=== PATIENT | female | born 1950 | race Caucasian/White ===

== ENCOUNTER 2016-07-01 11:32 | Day surgery (SDC) | payer MEDICARE, OTHER ==
[2016-07-01] MEDS ORDERED: LACTATED RINGERS 1,000 ML IV ONE (11:54)
[2016-07-01] MEDS ORDERED: fentaNYL 250 MCG/5 ML VIAL IVP ONE (12:46)
[2016-07-01] MEDS ORDERED: MIDAZOLAM 2 MG/2 ML VIAL IVP ONE (12:46)
== END 2016-07-01 11:33 | disposition home or self-care (01) ==
PROC: 0DB68ZX Excision of Stomach, Via Natural or Artificial Opening Endoscopic, Diagnostic (ICD-10-PCS; principal; 2016-07-01 12:30)
DX: K21.9 Gastro-esophageal reflux disease without esophagitis (principal); K22.2 Esophageal obstruction; K31.7 Polyp of stomach and duodenum
CPT/HCPCS: 43239; J3010; J7120

== ENCOUNTER 2016-09-15 12:13 | Outpatient (CLI) | payer MEDICARE, OTHER | END 2016-09-15 12:14 | disposition home or self-care (01) | DX: N63 Unspecified lump in breast (principal) ==

== ENCOUNTER 2017-04-19 09:00 | Outpatient (CLI) | payer MEDICARE, OTHER | END 2017-04-19 09:01 | disposition home or self-care (01) | LOC: LAB.R 09:00 | PROVIDERS: ATTEND Physician Assistant Medical | DX: R10.9 Unspecified abdominal pain (principal) | CPT/HCPCS: 87086 ==

== ENCOUNTER 2017-04-20 08:04 | Outpatient (CLI) | payer MEDICARE, OTHER ==
[2017-04-20 08:39] LABS: CALCIUM 9.3 mg/dL (8.5-10.3); CREATININE 0.8 mg/dL (0.4-1.0); POTASSIUM 3.9 mmol/L (3.5-5.0)
[2017-04-20] MEDS ORDERED: IOPAMIDOL-300 100 ML VIAL ONE (09:05)
[2017-04-20] MEDS ORDERED: IOPAMIDOL-300 100 ML VIAL IVP ONE (09:37)
--- NOTE | 2017-04-20 11:49 | CT Report ---
CT IVP: 04/20/2017 CLINICAL INDICATION: Microscopic hematuria. TECHNIQUE: Axial CT images of the abdomen and pelvis were obtained prior to and following 100 mL Iso nohemi-300 intravenously, using split bolus technique. No previous CT is available for comparison. In accordance with CT protocol optimization, one or more of the following dose reduction techniques w ere utilized for this exam: automated exposure control, adjustment of mA and/or KV based on patient size, or use of iterative reconstructive technique. FINDINGS: Limited evaluation of the lung bases is unremarkable. Abdomen: On the unenhanced images, there is no evidence of nephrolithiasis or hydronephrosis. The k idneys demonstrate symmetric uptake and excretion of contrast. No renal parenchymal lesion or collec ting system lesion is identified. The liver, spleen, pancreas, and adrenal glands are unremarkable. The gallbladder is not dilated. No bowel dilatation, free gas, or free fluid is present. No abdomi nal adenopathy is seen. Pelvis: The distal ureters and urinary bladder appear unremarkable. No pelvic adenopathy or free fl uid is present. The pelvic organs appear unremarkable. Osseous structures demonstrate degenerative changes and changes of previous left hip replacement. IMPRESSION: NO UPPER TRACT ETIOLOGY FOR PATIENT'S HEMATURIA IS IDENTIFIED. CONSIDER CORRELATION WIT H CYSTOSCOPY. JOB #: [id number] EXT JOB #:[id number]
== END 2017-04-20 08:05 | disposition home or self-care (01) ==
LOC: DI 08:04
PROVIDERS: ATTEND Family Medicine
DX: R31.29 Other microscopic hematuria (principal)
CPT/HCPCS: 36415; 74178; 80048; Q9967

== ENCOUNTER 2017-04-26 08:00 | Outpatient (CLI) | payer MEDICARE, OTHER ==
[2017-04-26 13:06] LABS: BILIRUBIN,URINE NEGATIVE (NEGATIVE)
[2017-04-26 13:19] LABS: UR CULTURE IF IND NOT INDICATED; WBC,URINE 0-3 /HPF (0-5)
== END 2017-04-26 08:01 ==
LOC: LAB.WCP 08:00
PROVIDERS: ATTEND Family Medicine
DX: R31.9 Hematuria, unspecified (principal)
CPT/HCPCS: 81001; 87086

== ENCOUNTER 2017-07-05 10:32 | Outpatient (CLI) | payer MEDICARE, OTHER ==
--- NOTE | 2017-07-06 10:12 | DEXA Report ---
DEXA SCAN: 07/05/2017 CLINICAL INDICATION: Osteoporosis. TECHNIQUE: Dual energy x-ray absorptiometry (DXA) was performed on a [employer] system. Regions measured are the AP spine, femoral neck, and, if needed, forearm. COMPARISON: 02/28/2016. In accordance with the International Society for Clinical Densitometry (ISCD) guidelines, data from previous exams may be reanalyzed using current recommendations and techniques. This is done to allow a more accurate basis for comparison with the current study. FINDINGS: The data for the lumbar spine is as follows: REGION BMD (g/cm/cm) T-SCORE Z-SCORE L1 0.861 -2.2 -0.8 L2 0.970 -1.9 -0.5 L3 0.959 -2.0 -0.6 L4 0.874 -2.7 -1.3 TOTAL 0.916 -2.2 -0.8 NOTE: All evaluable vertebrae are used for classification. The data for the hip is as follows: REGION BMD (g/cm/cm) T-SCORE Z-SCORE Neck 0.758 -2.0 -0.6 TOTAL 0.756 -2.0 -0.8 NOTE: The femoral neck or total proximal femur, whichever is lowest, is used for classification. DXA RESULTS SUMMARY: Spine SCAN DATE AGE BMD T-SCORE BMD CHANGE VS BASELINE BMD CHANGE VS PREVIOUS 07/05/2017 67.2 0.916 --- -0.048* -5.0* 02/28/2016 65.9 0.964 --- ---- --- *Denotes significant change at the 95% confidence level. Denotes dissimilar scan types or analysis methods. DXA RESULTS SUMMARY: Total Hip SCAN DATE AGE BMD T-SCORE BMD CHANGE VS BASELINE BMD CHANGE VS PREVIOUS 07/05/2017 67.2 0.756 --- -0.027 -3.4 02/28/2016 [age] 0.783 --- --- --- *Denotes significant change at the 95% confidence level. Denotes dissimilar scan types or analysis methods. IMPRESSION 1. THE WHO CLASSIFICATION BASED ON THE INTERNATIONAL REFERENCE STANDARD IS OSTEOPENIA. THE FRACTURE RISK IS INCREASED. 2. THERE HAS BEEN STATISTICALLY SIGNIFICANT INTERVAL DECREASE IN BONE MINERAL DENSITY OF THE LUMBAR SPINE FROM 02/28/2016. NO STATISTICALLY SIGNIFICANT INTERVAL CHANGE IN BONE MINERAL DENSITY OF THE RIGHT HIP. RECOMMENDATION: Patients with diagnosis of osteoporosis or osteopenia should have regular bone mineral density assessment. For those eligible for Medicare, routine testing is allowed once every 2 years. Testing frequency can be increased for patients who have rapidly progressing disease or for those who are receiving medical therapy to restore bone mass. COMMENT: World Health Organization (WHO) definitions for osteoporosis and osteopenia: NORMAL BMD: T-score at 1.0 or higher, fracture risk is low. OSTEOPENIA BMD: T-score between 1.0 and -2.5, fracture risk is increased. OSTEOPOROSIS BMD: T-score at 2.5 or lower, fracture risk high. National Osteoporosis Foundation recommends: 1. Obtain adequate dietary calcium (at least 1200 mg per day) and vitamin D (400 -800 international units per day). 2. Participate, as appropriate, in regular weightbearing and muscle- strengthening exercise. 3. Avoid tobacco use and reduce alcohol and caffeine intake. 4. For more detailed information see the website at www.NOF.org. TD: 07/05/2017 12:11 MARTÍNEZ
== END 2017-07-05 10:33 | disposition home or self-care (01) ==
LOC: DI 10:32
PROVIDERS: ATTEND Internal Medicine Endocrinology, Diabetes & Metabolism
DX: M85.89 Other specified disorders of bone density and structure, multiple sites (principal)
CPT/HCPCS: 77080

== ENCOUNTER 2017-08-24 19:05 | Outpatient (CLI) | payer MEDICARE, OTHER ==
--- NOTE | 2017-08-25 08:55 | Ultrasound Report ---
EXAM: BILATERAL LOWER EXTREMITY VENOUS ULTRASOUND EXAM DATE: 08/24/2017 07:57 PM. CLINICAL HISTORY: Bilateral leg pain. Trauma on left leg. Fall. COMPARISON: None. TECHNIQUE: Real-time sonographic vascular imaging was performed by the paleology teacher through the lower extremities utilizing both color-flow and Doppler spectral analysis. Multiple account retention representative static i mages were saved for review. FINDINGS: Right: Common Femoral Vein (CFV): Normal. CFV-GSV Junction: Normal. Profunda Femoral Vein (PFV): Normal. Femoral Vein (FV) Prox: Normal. Femoral Vein (FV) Mid: Normal. Femoral Vein (FV) Dist: Normal. Popliteal Vein: Normal. Posterior Tibial Veins: Normal. Peroneal Veins: Normal. Left: Common Femoral Vein (CFV): Normal. CFV-GSV Junction: Normal. Profunda Femoral Vein (PFV): Normal. Femoral Vein (FV) Prox: Normal. Femoral Vein (FV) Mid: Normal. Femoral Vein (FV) Dist: Normal. Popliteal Vein: Normal. Posterior Tibial Veins: Normal. Peroneal Veins: Normal. Other: None. IMPRESSION: 1. No evidence of right or left lower extremity deep venous thrombosis. [facility] Referring Provider Line: [phone] SITE ID: [id number]
== END 2017-08-24 19:06 | disposition home or self-care (01) ==
LOC: DI 19:05
PROVIDERS: ATTEND Family Medicine
DX: M79.605 Pain in left leg (principal); M79.604 Pain in right leg
CPT/HCPCS: 93970

== ENCOUNTER 2017-09-14 08:00 | Outpatient (CLI) | payer MEDICARE, OTHER ==
[2017-09-14 19:10] LABS: BASOPHILS % (AUTO) 1.2 %; EOSINOPHILS # (AUTO) 0.1 10^3/uL (0.0-0.7); EOSINOPHILS % (AUTO) 1.8 %; HGB - HEMOGLOBIN 12.7 g/dL (12.0-16.0); LYMPHOCYTES # (AUTO) 0.8 10^3/uL (1.5-3.5); LYMPHOCYTES % (AUTO) 20.5 %; MEAN CORPUSCULAR HEMOGLOBIN 29.1 pg (27.0-31.0); MEAN CORPUSCULAR HGB CONC 33.4 g/dL (32.0-36.0); MEAN PLATELET VOLUME 8.2 fL (7.9-10.8); MONOCYTES # (AUTO) 0.4 10^3/uL (0.0-1.0); MONOCYTES % (AUTO) 8.8 %; NEUTROPHILS # (AUTO) 2.8 10^3/uL (1.5-6.6); NEUTROPHILS % (AUTO) 67.7 %; PLT - PLATELET COUNT 198 10^3/uL (130-450); RED BLOOD COUNT 4.37 10^6/uL (4.20-5.40); RED CELL DISTRIBUTION WIDTH 13.2 % (12.0-15.0); WHITE BLOOD COUNT 4.1 x10^3/uL (4.8-10.8)
[2017-09-14 19:39] LABS: % IRON SATURATION 16 % (20-50); IRON 51 ug/dL (28-170); TOTAL IRON BINDING CAPACITY 319 ug/dL (250-450); TRANSFERRIN 228 mg/dL (192-382)
== END 2017-09-14 08:01 | disposition home or self-care (01) ==
LOC: LAB.WCP 08:00
PROVIDERS: ATTEND Family Medicine
DX: D64.9 Anemia, unspecified (principal); E06.3 Autoimmune thyroiditis
CPT/HCPCS: 36415; 82607; 83540; 84443; 84466; 85025

== ENCOUNTER 2017-09-22 15:02 | Outpatient (CLI) | payer MEDICARE, OTHER ==
--- NOTE | 2017-09-23 14:36 | XRAY Report ---
THREE VIEW LEFT KNEE: 09/22/2017 CLINICAL INDICATION: Tendinitis. FINDINGS: Standing AP, lateral, sunrise views of the left knee demonstrate mild osteoarthritis. There is no evidence of fracture or dislocation. No effusion is present. IMPRESSION: MILD OSTEOARTHRITIS. TD: 09/23/2017 14:35
== END 2017-09-22 15:03 | disposition home or self-care (01) ==
LOC: DI 15:02
PROVIDERS: ATTEND Family Medicine
DX: M17.12 Unilateral primary osteoarthritis, left knee (principal)

== ENCOUNTER 2017-11-16 14:16 | Outpatient (CLI) | payer MEDICARE, OTHER ==
--- NOTE | 2017-11-17 10:53 | Mammography Report ---
Procedure Date: 11/16/2017 Accession Number: [id number] / [id number] Procedure: STEPHEN - Diagnostic Dig Bilat CPT Code: FULL RESULT: EXAM: Diagnostic Dig Bilat DATE: 11/16/2017 2:42 PM CLINICAL HISTORY: Breast pain TECHNIQUE: Bilateral digital CC and MLO projections and left true lateral image. COMPARISON: 09/15/2016, 04/22/2016, 07/19/2014, 05/18/2013, 05/25/2012, 10/02/2010 and 06/18/2010 FINDINGS: There are scattered fibroglandular densities. No dominant mass, architectural distortion, skin thickening, suspicious microcalcifications or significant interval change. IMPRESSION: Negative. RECOMMENDATION: Suggest routine screening in 12 months. BIRADS CATEGORY 1: Negative STANDARD QUALIFYING STATEMENTS: 1. This examination was reviewed with the aid of Computer-Aided Detection (CAD). 2. A negative or benign imaging report should not delay biopsy if clinically suspicious findings are present. Consider surgical consultation if warrented. More than 5% of cancers are not identified by imaging. 3. Dense breasts may obscure an underlying neoplasm.
== END 2017-11-16 14:17 | disposition home or self-care (01) ==
LOC: DI 14:16
PROVIDERS: ATTEND Family Medicine
DX: N64.4 Mastodynia (principal)
CPT/HCPCS: 77066

== ENCOUNTER 2017-11-17 08:22 | Day surgery (SDC) | payer MEDICARE, OTHER ==
[~2017-11-17 08:22] MED LIST: LACTATED RINGERS 1,000 ML IV ONE
[2017-11-17] MEDS ORDERED: LACTATED RINGERS 1,000 ML IV ONE (09:00)
[2017-11-17] MEDS ORDERED: MIDAZOLAM 2 MG/2 ML VIAL IVP ONE (10:30)
[2017-11-17] MEDS ORDERED: fentaNYL 250 MCG/5 ML VIAL IVP ONE (10:30)
[2017-11-17 11:03] VITALS: BP 120/68
== END 2017-11-17 08:23 | disposition home or self-care (01) ==
LOC: SDS 08:22
PROVIDERS: ATTEND Internal Medicine
PROC: 0DJD8ZZ Inspection of Lower Intestinal Tract, Via Natural or Artificial Opening Endoscopic (ICD-10-PCS; principal; 2017-11-17 09:30)
DX: Z12.11 Encounter for screening for malignant neoplasm of colon (principal); K21.9 Gastro-esophageal reflux disease without esophagitis; Z86.010 Personal history of colon polyps
CPT/HCPCS: G0105; J3010; J7120

== ENCOUNTER 2018-01-04 13:00 | Outpatient (CLI) | payer MEDICARE, OTHER | END 2018-01-04 13:01 | disposition home or self-care (01) | LOC: LAB.WCP 13:00 | PROVIDERS: ATTEND Internal Medicine Endocrinology, Diabetes & Metabolism | DX: E06.3 Autoimmune thyroiditis (principal) | CPT/HCPCS: 36415; 84443 ==

== ENCOUNTER 2018-04-09 09:17 | Outpatient (CLI) | payer MEDICARE, OTHER ==
--- NOTE | 2018-04-09 16:54 | MRI Report ---
Reason: SHOULDER PAIN, RIGHT Procedure Date: 04/09/2018 Accession Number: [id number] / [id number] Procedure: MRI - Shoulder RT W/O CPT Code: FULL RESULT: EXAM: RIGHT SHOULDER MRI WITHOUT CONTRAST EXAM DATE: 04/09/2018 10:06 AM. CLINICAL HISTORY: Right shoulder pain. COMPARISON: Shoulder 3-view right 03/29/2018 9:39 AM. TECHNIQUE: Multiplanar, multisequence T1-weighted and fluid-sensitive sequences of the shoulder without contrast. Other: None. FINDINGS: Acromioclavicular Region: The acromion is type I. Mild acromioclavicular joint osteoarthritis. The coracoacromial and coracoclavicular ligaments are intact. No subacromial/subdeltoid bursal fluid. Glenohumeral Region: No subluxation. Small joint effusion. There is a 1.2 x 0.6 x 0.9 cm loose body at the subscapularis recess of the joint. Grade 3-4 chondromalacia at the humeral head. The glenohumeral ligaments and joint capsule are unremarkable. Bone Marrow: Small marginal osteophytes at the humeral head. Small subcortical cysts at the superior aspect of the humeral head and at the medial aspect of the acromion. Labrum: The labrum is unremarkable on this nonarthrographic study. Musculature/Rotator Cuff: There is supraspinatus and infraspinatus tendinosis. Teres minor tendon is unremarkable. Mild subscapularis tendinosis. Tiny 2 mm ganglion at the distal aspect of the subscapularis muscle tendon unit. No edema or fatty atrophy. Biceps Tendon: The long head of the biceps tendon and biceps brooke are intact. Other: The subcutaneous tissues are unremarkable. IMPRESSION: 1. 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 2. Small glenohumeral joint effusion. A 1.2 x 0.6 x 0.9 cm loose body at the subscapularis recess of the glenohumeral joint. 3. Supraspinatus, infraspinatus, and subscapularis tendinosis. No rotator cuff tear. 4. Mild acromioclavicular joint osteoarthritis. [facility] MUSCULOSKELETAL RADIOLOGY SECTION
== END 2018-04-09 09:18 | disposition home or self-care (01) ==
LOC: DI 09:17
PROVIDERS: ATTEND Orthopaedic Surgery Sports Medicine
DX: M94.211 Chondromalacia, right shoulder (principal); M25.411 Effusion, right shoulder; M24.011 Loose body in right shoulder; M19.011 Primary osteoarthritis, right shoulder; M75.91 Shoulder lesion, unspecified, right shoulder

== ENCOUNTER 2018-08-26 14:19 | Outpatient (CLI) | payer MEDICARE, OTHER ==
--- NOTE | 2018-08-29 11:08 | DEXA Report ---
Reason: OSTEOPOROSIS,UNSPECIFIED OSTEOPOROSIS TYPE,UNSPECI Procedure Date: 08/26/2018 Accession Number: [id number] / [id number] Procedure: DEX - Dexa Spine and/or Hip CPT Code: FULL RESULT: EXAM: Dexa Spine and/or Hip DATE: 08/26/2018 3:11 PM CLINICAL HISTORY: Osteoporosis, unspecified OSTEOPOROSIS Type, unspecified. TECHNIQUE: Dual energy x-ray absorptiometry (DXA) was performed on a [employer] System. Regions measured are the AP Spine, femoral neck, and if needed forearm. COMPARISON: 07/05/2017. In accordance with the International Society for Clinical Densitometry (ISCD) guidelines, data from previous exams may be reanalyzed using current recommendations and techniques. This is done to allow a more accurate basis for comparison with the current study. FINDINGS: The data for the lumbar spine is as follows: BMD (g/cm/cm) T-SCORE Z-SCORE REGION L1 0.815 -2.6 -1.2 L2 0.957 -2.0 -0.6 L3 0.939 -2.2 -0.7 L4 0.945 -2.1 -0.7 TOTAL 0.916 -2.2 -0.7 NOTE: All evaluable vertebrae are used for classification The data for the hip is as follows: BMD (g/cm/cm) T-SCORE Z-SCORE REGION Neck 0.746 -2.1 -0.6 TOTAL 0.734 -2.2 -0.9 NOTE: The femoral neck or total proximal femur, whichever is lowest, is used for classification. DXA RESULTS SUMMARY: Spine SCAN DATE AGE BMD CHANGE VS CHANGE VS PREVIOUS PREVIOUS % 08/26/2018 68.3 0.89 0.000 0.0 07[age]05/2017 67.2 0.916 -0.048* -5.0* 02[age]28/2016 [age] 0.964 * Denotes significant change at the 95% confidence level. Denotes dissimilar scan types or analysis methods. DXA RESULTS SUMMARY: Hip SCAN DATE AGE BMD CHANGE VS CHANGE VS PREVIOUS PREVIOUS % 08/26/2018 68.3 0.734 -0.022 -2.9 07[age]08/2017 67.2 0.756 -0.027 -3.4 02[age]28[birth year]2016 [age] 0.786 * Denotes significant change at the 95% confidence level. Denotes dissimilar scan types or analysis methods. IMPRESSION: THE WHO CLASSIFICATION BASED ON THE INTERNATIONAL REFERENCE STANDARD IS OSTEOPENIA. THE FRACTURE RISK IS INCREASED. RECOMMENDATION: Patients with diagnosis of osteoporosis or osteopenia should have regular bone mineral density assessment. For those eligible for Medicare, routine testing is allowed once every 2 years. Testing frequency can be increased for patients who have rapidly progressing disease or for those who are receiving medical therapy to restore bone mass. COMMENT: World Health Organization (WHO) definitions for osteoporosis and osteopenia: NORMAL BMD: T-score at -1.0 or higher, fracture risk is low OSTEOPENIA BMD: T-score between -1.0 and -2.5, fracture risk is increased. OSTEOPOROSIS BMD: T-score at -2.5 or lower, fracture risk is high. National Osteoporosis Foundation recommends: 1. Obtain adequate dietary calcium (at least 1200 mg per day) and vitamin D (400-800 international units per day). 2. Participate, as appropriate, in regular weightbearing and muscle-strengthening exercise. 3. Avoid tobacco use and reduce alcohol and caffeine intake. 4. For more detailed information see the website at www.NOF.org.
== END 2018-08-26 14:20 | disposition home or self-care (01) ==
LOC: DI 14:19
PROVIDERS: ATTEND Internal Medicine Endocrinology, Diabetes & Metabolism
DX: M85.89 Other specified disorders of bone density and structure, multiple sites (principal)
CPT/HCPCS: 77080

== ENCOUNTER 2018-09-02 08:00 | Outpatient (CLI) | payer MEDICARE, OTHER ==
[2018-09-02 18:56] LABS: BASOPHILS % (AUTO) 0.9 %; EOSINOPHILS # (AUTO) 0.1 10^3/uL (0.0-0.7); EOSINOPHILS % (AUTO) 1.8 %; HGB - HEMOGLOBIN 13.3 g/dL (12.0-16.0); LYMPHOCYTES # (AUTO) 0.9 10^3/uL (1.5-3.5); LYMPHOCYTES % (AUTO) 21.1 %; MEAN CORPUSCULAR HEMOGLOBIN 29.2 pg (27.0-31.0); MEAN CORPUSCULAR HGB CONC 33.7 g/dL (32.0-36.0); MEAN CORPUSCULAR VOLUME 86.8 fL (81.0-99.0); MEAN PLATELET VOLUME 8.3 fL (7.9-10.8); MONOCYTES # (AUTO) 0.4 10^3/uL (0.0-1.0); MONOCYTES % (AUTO) 8.1 %; NEUTROPHILS % (AUTO) 68.1 %; PLT - PLATELET COUNT 202 10^3/uL (130-450); RED BLOOD COUNT 4.55 10^6/uL (4.20-5.40); RED CELL DISTRIBUTION WIDTH 13.2 % (12.0-15.0); WHITE BLOOD COUNT 4.5 x10^3/uL (4.8-10.8)
[2018-09-02 19:28] LABS: FERRITIN 58.2 ng/mL (11.0-306.8)
[2018-09-02 19:32] LABS: FOLATE 16.48 ng/mL (5.90 - >24.8)
[2018-09-02 19:33] LABS: % IRON SATURATION 20 % (20-50); IRON 66 ug/dL (28-170); TOTAL IRON BINDING CAPACITY 322 ug/dL (250-450); TRANSFERRIN 230 mg/dL (192-382)
== END 2018-09-02 23:59 | disposition home or self-care (01) ==
LOC: LAB.WCP 08:00
PROVIDERS: ATTEND Family Medicine
DX: D64.9 Anemia, unspecified (principal)
CPT/HCPCS: 36415; 82607; 82728; 82746; 83540; 84466; 85025

== ENCOUNTER 2018-11-14 15:02 | Outpatient (CLI) | payer MEDICARE, OTHER | END 2018-11-14 15:03 | disposition home or self-care (01) | LOC: LAB.WCP 15:02 | PROVIDERS: ATTEND Internal Medicine Endocrinology, Diabetes & Metabolism | DX: E06.3 Autoimmune thyroiditis (principal) | CPT/HCPCS: 36415; 84443 ==

== ENCOUNTER 2019-01-18 12:24 | Outpatient (CLI) | payer MEDICARE, OTHER ==
--- NOTE | 2019-01-18 14:16 | Mammography Report ---
Reason: SCREENING MAMMO Procedure Date: 01/18/2019 Accession Number: [id number] / [id number] Procedure: STEPHEN - Screening Mammo w/Antonio CPT Code: FULL RESULT: EXAM: Screening Mammo w/Antonio DATE: 01/18/2019 1:04 PM CLINICAL HISTORY: Routine screening. No reported personal history of breast cancer. Family history breast cancer in maternal aunt age 50. TECHNIQUE: (B) - Bilateral CC and MLO views were obtained. COMPARISON: 11/16/2017 through 07/19/2014. PARENCHYMAL PATTERN: (A) - The breasts demonstrate scattered fibroglandular densities bilaterally. FINDINGS: Bilateral breasts: There are no suspicious masses, calcifications, or areas of distortion. IMPRESSION: Negative examination. BI-RADS category 1. RECOMMENDATION: (ANNUAL) - Recommend routine annual screening mammography. BI-RADS CATEGORY: STANDARD QUALIFYING STATEMENTS: 1. This examination was not reviewed with the aid of Computer-Aided Detection (CAD). 2. A negative or benign imaging report should not preclude biopsy if clinically suspicious findings are present. 3. Dense breasts may obscure an underlying neoplasm. 4. This examination was reviewed with the aid of 3D breast imaging (tomosynthesis).
== END 2019-01-18 12:25 | disposition home or self-care (01) ==
LOC: DI 12:24
DX: Z12.31 Encounter for screening mammogram for malignant neoplasm of breast (principal); Z80.3 Family history of malignant neoplasm of breast
CPT/HCPCS: 77063; 77067

== ENCOUNTER 2019-10-18 15:02 | Outpatient (CLI) | payer MEDICARE, OTHER ==
--- NOTE | 2019-10-19 15:41 | Ultrasound Report ---
Reason: NONTOXIC MULTINODULAR GOITER Procedure Date: 10/18/2019 Accession Number: [id number] / [id number] Procedure: US - Head or Neck Soft Tissue CPT Code: Final Report FULL RESULT: EXAM: THYROID ULTRASOUND EXAM DATE: 10/18/2019 05:31 PM. CLINICAL HISTORY: NONTOXIC MULTINODULAR GOITER. COMPARISON: [facility] thyroid ultrasound 08/09/2018. TECHNIQUE: Real time sonographic imaging of the thyroid was performed by the greige goods marker. Multiple medical claims representative static images were saved for review. FINDINGS: THYROID GLAND: Right Lobe: 5.5 x 4.2 x 3.1 cm, volume 37 cc. Previously 5.8 x 2.4 x 2.4 cm. Heterogeneous echotexture. Right Lobe Nodules: Multiple nodules. These include the followin. Solid right upper thyroid lobe nodule 1.4 x 1.4 x 1.3 cm, previously 1.3 x 1.4 x 1.6 cm. 2. Medial right mid thyroid nodule 2.4 x 1.4 x 2.2 cm, previously 2.4 x 1.1 x 2.5 cm. 3. Lateral right lower thyroid nodule measures 2.0 x 1.5 x 1.6 cm, previously 2.8 x 2.1 x 2.7 cm. Left Lobe: 5.3 x 2.7 x 1.6 cm, volume 12 cc. Previously 5.9 x 1.5 x 2.8 cm. Heterogeneous echotexture. Left Lobe Nodules: Lateral left mid thyroid nodule measures 1.3 x 0.8 by with 0.9 cm. Medial left mid thyroid nodule, slightly inferior to the first nodule measures 1.3 x 0.9 x 1.2 cm. Prior ultrasound report noted a 1.1 x 1.0 x 1.4 cm left thyroid nodule. Additional left thyroid lobe nodules were likely present on image 127 of prior outside ultrasound. Isthmus: 0.9 cm AP. Normal background echotexture. Isthmic Nodules: Thyroid isthmus nodule measures 2.5 x 2.4 x 2.6 cm. LYMPH NODES: No adenopathy demonstrated in the central or lateral compartment. OTHER: None. IMPRESSION: 1. Multinodular goiter. Enlarged thyroid gland with numerous solid nodules. Overall appearance is similar to prior outside ultrasound. 2. Present exam notes a 2.6 cm solid thyroid isthmus nodule, which was not previously reported. If this nodule was present on prior exam, it was difficult to delineate from remainder of thyroid gland. Consider ultrasound-guided FNA of the thyroid isthmus nodule. Management recommendations are based on 2015 [place] [employer] Management Guidelines for Adult Patients with Thyroid Nodules and Differentiated Thyroid Cancer. [facility]
== END 2019-10-18 15:03 | disposition home or self-care (01) ==
LOC: DI 15:02
PROVIDERS: ATTEND Internal Medicine Endocrinology, Diabetes & Metabolism
DX: E04.2 Nontoxic multinodular goiter (principal); E06.3 Autoimmune thyroiditis
CPT/HCPCS: 36415; 76536; 84443

== ENCOUNTER 2019-11-13 08:10 | Outpatient (CLI) | payer MEDICARE, OTHER ==
--- NOTE | 2019-11-13 09:19 | DEXA Report ---
Reason: OSTEOPOROSIS Procedure Date: 11/13/2019 Accession Number: [id number] / [id number] Procedure: DEX - Dexa Spine and/or Hip CPT Code: Final Report FULL RESULT: PROCEDURE: Dexa Spine and/or Hip INDICATIONS: OSTEOPOROSIS TECHNIQUE: Dual energy x-ray absorptiometry (DXA) was performed on a [employer] System. Regions measured are the AP Spine, femoral neck, and if needed forearm. COMPARISON: 08/26/2018. FINDINGS: Lumbar Spine: Bone Mineral Density 0.910 g/cm/cm,T score -2.3, there is 0.7% decrease in total lumbar spine bone mineral density compared to previous study. Right Femoral Neck: Bone Mineral Density 0.756 g/cm/cm, T score -2.0, there is 3% increase in right femoral neck bone mineral density compared to previous study. (T score greater or equal to -1.0: NORMAL) (T score from -1.1 to -2.4: OSTEOPENIA) (T score less than or equal to -2.5 to: OSTEOPOROSIS) Impression: Finding is consistent with osteopenia in lumbar spine and right femoral neck. Patients with diagnosis of osteoporosis or osteopenia should have regular bone mineral density assessment. For those eligible for Medicare, routine testing is allowed once every 2 years. Testing frequency can be increased for patients who have rapidly progressing disease or for those who are receiving medical therapy to restore bone mass. Reviewed by: Mikey Mendez MD on 11/13/2019 9:18 AM PDT Approved by: Mikey Mendez MD on 11/13/2019 9:18 AM PDT Station ID: [id number]
== END 2019-11-13 08:11 | disposition home or self-care (01) ==
LOC: DI 08:10
PROVIDERS: ATTEND Internal Medicine Endocrinology, Diabetes & Metabolism
DX: M85.89 Other specified disorders of bone density and structure, multiple sites (principal)
CPT/HCPCS: 77080

== ENCOUNTER 2020-04-02 08:00 | Outpatient (CLI) | payer MEDICARE, OTHER ==
[2020-04-02 18:09] LABS: ALBUMIN 4.2 g/dL (3.2-5.5); ALBUMIN/GLOBULIN RATIO 1.2 (1.0-2.2); BILIRUBIN,TOTAL 0.5 mg/dL (0.2-1.0); CALCIUM 9.6 mg/dL (8.5-10.3); TOTAL PROTEIN 7.7 g/dL (6.7-8.2)
== END 2020-04-02 23:59 ==
LOC: LAB.WCP 08:00
PROVIDERS: ATTEND Physician Assistant
DX: I10 Essential (primary) hypertension (principal); E03.9 Hypothyroidism, unspecified
CPT/HCPCS: 36415; 80053; 84443

== ENCOUNTER 2020-06-17 17:08 | Outpatient (CLI) | payer MEDICARE, OTHER | END 2020-06-17 17:09 | disposition home or self-care (01) | LOC: COV 17:08 | PROVIDERS: ATTEND Family Medicine | DX: R53.83 Other fatigue (principal); R19.7 Diarrhea, unspecified; R09.81 Nasal congestion; Z20.822 Contact with and (suspected) exposure to COVID-19 ==

== ENCOUNTER 2020-06-25 08:00 | Outpatient (CLI) | payer MEDICARE, OTHER ==
[2020-06-25 18:14] LABS: BASOPHILS % (AUTO) 0.8 %; EOSINOPHILS # (AUTO) 0.1 10^3/uL (0.0-0.7); EOSINOPHILS % (AUTO) 1.9 %; HGB - HEMOGLOBIN 14.2 g/dL (12.0-16.0); LYMPHOCYTES # (AUTO) 0.9 10^3/uL (1.5-3.5); LYMPHOCYTES % (AUTO) 18.2 %; MEAN CORPUSCULAR HEMOGLOBIN 29.2 pg (27.0-31.0); MEAN CORPUSCULAR HGB CONC 31.7 g/dL (32.0-36.0); MEAN CORPUSCULAR VOLUME 92.2 fL (81.0-99.0); MEAN PLATELET VOLUME 10.4 fL (7.9-10.8); MONOCYTES # (AUTO) 0.4 10^3/uL (0.0-1.0); MONOCYTES % (AUTO) 8.6 %; NEUTROPHILS # (AUTO) 3.4 10^3/uL (1.5-6.6); NEUTROPHILS % (AUTO) 70.3 %; PLT - PLATELET COUNT 256 10^3/uL (130-450); RED BLOOD COUNT 4.86 10^6/uL (4.20-5.40); RED CELL DISTRIBUTION WIDTH 12.4 % (12.0-15.0); WHITE BLOOD COUNT 4.8 x10^3/uL (4.8-10.8)
[2020-06-25 18:39] LABS: ALBUMIN 4.4 g/dL (3.2-5.5); ALBUMIN/GLOBULIN RATIO 1.2 (1.0-2.2); BILIRUBIN,TOTAL 0.6 mg/dL (0.2-1.0); CALCIUM 9.3 mg/dL (8.5-10.3)
== END 2020-06-25 23:59 | disposition home or self-care (01) ==
LOC: LAB.WCP 08:00
PROVIDERS: ATTEND Physician Assistant Medical
DX: R10.30 Lower abdominal pain, unspecified (principal)
CPT/HCPCS: 36415; 80053; 85025

== ENCOUNTER 2020-06-25 13:00 | Outpatient (CLI) | payer MEDICARE, OTHER | END 2020-06-25 23:59 | disposition home or self-care (01) | LOC: LAB.R 13:00 | PROVIDERS: ATTEND Physician Assistant Medical | DX: K52.9 Noninfective gastroenteritis and colitis, unspecified (principal) | CPT/HCPCS: 81599; 87045; 87046; 87177; 87209; 87329; 87427; 87493 ==

== ENCOUNTER 2020-07-08 14:54 | Outpatient (CLI) | payer MEDICARE, OTHER ==
--- NOTE | 2020-07-08 16:35 | Ultrasound Report ---
PROCEDURE: Pelvic w/Transvaginal INDICATIONS: SUPRAPUBIC ABD PAIN TECHNIQUE: Real-time scanning was performed of the pelvic organs, with image documentation. Additional endovagi nal scanning was necessary due to incomplete visualization of the adnexal and endometrial structures by transabdominal scanning. COMPARISON: Pelvic ultrasound , CT abdomen pelvis 04/20/2017 FINDINGS: No pathologic free abdominal or pelvic fluid. Uterus: Uterus is normal in size at 5.2 x 2.5 x 4.0 cm., Volume 27.4 cc The endometrium measures 3. 5 mm in combined thickness. Ovaries: Right ovary measures 3.6 x 2.8 x 2.67 m, volume 13.3 cc. Hypoechoic focus with septations n oted within the right ovary measuring approximately 2.9 x 2.6 x 2.4 cm. Left ovary is not well seen.. Within the left adnexal region, there is an ill-defined 9 x 9 x 11 mm focus. IMPRESSION: 1. Right ovarian cyst. 2. Poor visualization of the right ovary. Small diminutive focus of echogenicity is noted in the left adnexa which may represent atrophy ovary. However, other etiologies cannot be excluded. If further e valuation is recommended, CT pelvis with contrast is recommended for further evaluation. Reviewed by: Eloise Mcclure MD on 07/08/2020 4:34 PM PST Approved by: Eloise Mcclure MD on 07/08/2020 4:34 PM PST Station ID: [id number]
== END 2020-07-08 14:55 | disposition home or self-care (01) ==
LOC: DI 14:54
PROVIDERS: ATTEND Physician Assistant Medical
DX: N83.201 Unspecified ovarian cyst, right side (principal)

== ENCOUNTER 2020-07-12 08:00 | Outpatient (CLI) | payer MEDICARE, OTHER ==
[2020-07-12 19:34] LABS: CHOL/HDL RATIO 3.4 (<4.4); CHOLESTEROL 215 mg/dL; HDL CHOLESTEROL 64 mg/dL; LDL CHOLESTEROL,CALCULATED 123 mg/dL; LDL/HDL RATIO 1.9 (<4.4); VLDL CHOLESTEROL 28 mg/dL
== END 2020-07-12 23:59 | disposition home or self-care (01) ==
LOC: LAB.WCP 08:00
PROVIDERS: ATTEND Physician Assistant Medical
DX: I10 Essential (primary) hypertension (principal); E78.5 Hyperlipidemia, unspecified; R10.30 Lower abdominal pain, unspecified
CPT/HCPCS: 36415; 80061; 82378; 83721; 86304

== ENCOUNTER 2020-07-15 09:29 | Outpatient (CLI) | payer MEDICARE, OTHER ==
--- NOTE | 2020-07-16 12:46 | Mammography Report ---
BILATERAL DIGITAL SCREENING MAMMOGRAM 3D/2D: 07/15/2020 CLINICAL: Routine screening. Comparison is made to exams dated: 01/18/2019 mammogram, 11/16/2017 mammogram, 09/15/2016 mammogram, mammogram, 09/14/2014 ultrasound, and 07/19/2014 mammogram - [facility]. Th e tissue of both breasts is predominantly fatty. No significant masses, calcifications, or other findings are seen in either breast. There has been no significant interval change. IMPRESSION: NEGATIVE There is no mammographic evidence of malignancy. A 1 year screening mammogram is recommended. This exam was interpreted at Station ID: [id number]. NOTE: For mammograms, a report in lay terms will be sent to the patient. Approximately 15% of breast malignancies will not be visualized mammographically. In the management of a palpable breast mass, a negative mammogram must not discourage biopsy of a clinically suspicious lesion. Electronically Signed By: Tra Sands M.D., jr/shaun:07/15/2020 10:18:41 ACR BI-RADS Category 1: Negative 3341F PARENCHYMAL PATTERN: (F) - The breast(s) demonstrate(s) diffuse fatty replacement. BI-RADS CATEGORY: (1) - 1 RECOMMENDATION: (ANNUAL) - Recommend routine annual screening mammography. [id number] 1 year screening LATERALITY: (B)
== END 2020-07-15 09:30 | disposition home or self-care (01) ==
LOC: DI.N 09:29
DX: Z12.31 Encounter for screening mammogram for malignant neoplasm of breast (principal)

== ENCOUNTER 2020-07-25 09:30 | Outpatient (CLI) | payer MEDICARE, OTHER ==
[2020-07-25] MEDS ORDERED: IOPAMIDOL-300 50 ML VIAL ONE (09:50)
[2020-07-25] MEDS ORDERED: IOVERSOL 320 100 ML VIAL IVP ONE ×2 (10:59→14:33)
--- NOTE | 2020-07-25 13:44 | CT Report ---
PROCEDURE: Abdomen/Pelvis W INDICATIONS: SUPRAPUBIC ABD PAIN CONTRAST: IV CONTRAST: Optiray 320 ml: 100 PO CONTRAST: Isovue 300 ml50 TECHNIQUE: After the administration of contrast, 5 mm thick sections acquired from the diaphragms to the sym physis. 5 mm thick coronal and sagittal reformats were acquired. For radiation dose reduction, the following was used: automated exposure control, adjustment of mA and/or kV according to patient size . COMPARISON: None. FINDINGS: Image quality: Excellent. ABDOMEN: Lung bases: Lung bases are clear. Heart size is normal. Solid organs: Liver and spleen are normal in size and enhancement. Gallbladder Biliary system is non dilated. Pancreas enhances normally. No adrenal nodules. Kidneys demonstrate normal size an d enhancement, without hydronephrosis. Peritoneum and bowel: Bowel loops demonstrate normal wall thickness and caliber, but there is modera te bilateral colonic obstipation.. No free fluid or air. Nodes and vessels: No retroperitoneal or mesenteric adenopathy by size criteria. Aorta and inferior vena cava are normal in size. Miscellaneous: No ventral hernias. PELVIS: Genitourinary: Bladder wall thickness is normal. Miscellaneous: No inguinal hernias or adenopathy. Bones: No suspicious bony lesions. No vertebral body compression fractures. IMPRESSION: Moderate bilateral colonic obstipation. Quality of visualization of the lower third of t he pelvis is limited by metal artifact from left total hip arthroplasty. No sign of diverticulitis, n o inflammatory free fluid is seen throughout the peritoneal space. Reviewed by: Jose Antonio Del Valle MD on 07/25/2020 1:43 PM PST Approved by: Jose Antonio Del Valle MD on 07/25/2020 1:43 PM PST Station ID: [id number]
[2020-07-25] MEDS ORDERED: IOPAMIDOL-300 50 ML VIAL PO ONE (14:33)
== END 2020-07-25 09:31 | disposition home or self-care (01) ==
LOC: DI 09:30
PROVIDERS: ATTEND Physician Assistant Medical
DX: R10.30 Lower abdominal pain, unspecified (principal); K59.00 Constipation, unspecified
CPT/HCPCS: 74177; Q9967

== ENCOUNTER 2020-10-09 11:21 | Outpatient (CLI) | payer MEDICARE, OTHER ==
--- NOTE | 2020-10-10 14:09 | Mammography Report ---
UNILATERAL LEFT DIGITAL DIAGNOSTIC MAMMOGRAM 3D/2D: 10/09/2020 CLINICAL: Diffuse left breast pain. Comparison is made to exams dated: 07/15/2020 mammogram, 01/18/2019 mammogram, 11/16/2017 mammogram, mammogram, and 04/22/2016 mammogram - [facility]. There are scattered fibr oglandular elements in left breast. No significant masses, calcifications, or other findings are seen in the breast. IMPRESSION: INCOMPLETE: NEEDS ADDITIONAL IMAGING EVALUATION No mammographic evidence of malignancy. No short-term interval change. A targeted ultrasound of the area of pain in the left breast is recommended and will immediately foll ow. This exam was interpreted at Station ID: [id number]. NOTE: For mammograms, a report in lay terms will be sent to the patient. Approximately 15% of breast malignancies will not be visualized mammographically. In the management of a palpable breast mass, a negative mammogram must not discourage biopsy of a clinically suspicious lesion. Electronically Signed By: Jerry Wang M.D. slc/:10/09/2020 12:07:43 ACR BI-RADS Category 0: Incomplete 3340F PARENCHYMAL PATTERN: (A) - The breast(s) demonstrate(s) scattered fibroglandular densities. BI-RADS CATEGORY: (0) - 0 Ultrasound [id number] Immediate follow-up LATERALITY: (B)
--- NOTE | 2020-10-10 14:09 | Ultrasound Report ---
LIMITED ULTRASOUND OF LEFT BREAST: 10/09/2020 CLINICAL: Focal left breast pain. Intermittent, chronic in nature. Comparison is made to exams dated: 10/09/2020 mammogram, 07/15/2020 mammogram, 01/18/2019 mammogram, mammogram, 09/15/2016 mammogram, and 04/22/2016 mammogram - [facility]. Real-time ultrasound of the left breast 2-4 o'clock, and retroareolar regions was performed. Martinez sc rissa images of the real-time examination were reviewed. No significant abnormalities were seen sonographically in the left breast in the region of pain. IMPRESSION: NEGATIVE There is no sonographic evidence of malignancy. A 1 year screening mammogram is recommended. Exam findings were conveyed to the patient. Patient is advised to monitor for significant change. Cli nical follow-up as needed. This exam was interpreted at Station ID: [id number]. Electronically Signed By: Jerry Wang M.D. slc/:10/09/2020 13:35:35 Ultrasound BI-RADS: 1 Negative BI-RADS CATEGORY: (1) - 1 RECOMMENDATION: (ANNUAL) - Recommend routine annual screening mammography. [id number] 1 year screening LATERALITY: (B)
== END 2020-10-09 11:22 | disposition home or self-care (01) ==
LOC: DI 11:21
PROVIDERS: ATTEND Surgery
DX: N63.0 Unspecified lump in unspecified breast (principal); N64.4 Mastodynia; R92.8 Other abnormal and inconclusive findings on diagnostic imaging of breast

== ENCOUNTER 2020-10-14 08:00 | Outpatient (CLI) | payer MEDICARE, OTHER | END 2020-10-14 23:59 | disposition home or self-care (01) | LOC: COV 08:00 | PROVIDERS: ATTEND Physician Assistant Medical | DX: M79.10 Myalgia, unspecified site (principal); R07.0 Pain in throat; R09.81 Nasal congestion; J34.89 Other specified disorders of nose and nasal sinuses; Z20.822 Contact with and (suspected) exposure to COVID-19 ==

== ENCOUNTER 2020-10-27 21:58 | Emergency (ER) | payer MEDICARE, OTHER ==
--- OUTSIDE RECORDS SUMMARY | 2020-10-27 22:11 | EXTERNAL MEDICAL SUMMARY RPT | Continuity of Care Document ---
:1950 Demographics Phone Unavailable Preferred Language Unknown Marital Status Unknown Pent[employer]al Affiliation Unknown Race Unknown Ethnic Group Unknown Author Organization [facility] Address [address] [place] [address] Phone Allergies Encounters Medications Problems Results
[2020-10-27 22:30] LABS: BILIRUBIN,URINE NEGATIVE (NEGATIVE); GLUCOSE, URINE (UA) NEGATIVE (NEGATIVE); KETONES,URINE (UA) NEGATIVE (NEGATIVE); LEUKOCYTE ESTERASE, URINE SMALL (NEGATIVE); NITRITE,URINE NEGATIVE (NEGATIVE); OCCULT BLOOD,URINE TRACE-INTA (NEGATIVE); PROTEIN,URINE NEGATIVE (NEGATIVE); UROBILINOGEN,URINE 0.2 (NORMAL) E.U./dL (NORMAL)
[2020-10-27 22:31] LABS: CLARITY,URINE HAZY (CLEAR)
[2020-10-27 22:37] LABS: RBC,URINE 0-5 /HPF (0-5)
[2020-10-27 22:38] LABS: BACTERIA,URINE Few /HPF (None Seen); SQUAMOUS EPITHELIAL CELL,UR NONE SEEN (<= Few)
--- NOTE | 2020-10-28 00:15 | ED Physician Documentation ---
PD HPI BACK PAIN - Stated complaint Stated Complaint: RT BACK PAIN - Chief complaint Chief Complaint: Abd Pain - History obtained from History obtained from: Patient - History of Present Illness Timing - onset: Today (this morning) Timing - details: Gradual onset Pain level now: 6 Location: Right Quality: Pain Associated symptoms: No: Fever, Weakness, Numbness, Incontinent of urine, Unable to urinate, Hematuria, Incontinent of stool Improves with: Nothing Worsened by: Palpation Similar symptoms before: Has not had sx before Recently seen: Not recently seen - Additional information Additional information: Patient complains of right flank pain that radiates to the right para lumbar area, gradual onset this morning while at home at rest. She denies history of similar symptoms. She denies fever. She notes some urinary frequency but no dysuria. Review of Systems Constitutional: reports: Reviewed and negative Cardiac: reports: Reviewed and negative Respiratory: reports: Reviewed and negative GI: denies: Abdominal Pain, Nausea, Vomiting : reports: Frequency. denies: Dysuria, Hematuria Skin: denies: Rash PD PAST MEDICAL HISTORY - Past Medical History Cardiovascular: Hypertension Respiratory: None Endocrine/Autoimmune: None GI: GERD, Chronic constipation : Incontinence, Frequency HEENT: None Psych: None Musculoskeletal: None Derm: None - Past Surgical History Past Surgical History: Yes Ortho: Hip replacement, Other - Present Medications Home Medications: Ambulatory Orders Medication Instructions Recorded Confirmed Ascorbate Calcium [Vitamin C] 300 mg PO DAILY 12/07/12 10/25/20 Calcium Crb,Cit/D3/Min34/[place] 1 each PO DAILY 12/07/12 10/25/20 [Citracal + Bone Density Tablet] Ibuprofen [Motrin] 100 mg PO DAILY PRN 12/07/12 10/25/20 Cholecalciferol (Vitamin D3) 2,000 unit PO DAILY 11/16/17 10/25/20 [Vitamin D] Levothyroxine [Synthroid] 25 mcg PO QDAC 11/16/17 10/25/20 Ubidecarenone [Co Q-10] 300 mg PO DAILY 11/16/17 10/25/20 Vitamin B Complex 1 tab PO DAILY 10/25/20 10/25/20 Vitamin K2 100 mcg PO DAILY 10/25/20 10/25/20 - Allergies Allergies/Adverse Reactions: Allergies Allergy/AdvReac Type Severity Reaction Status Date / Time Sulfa (Sulfonamide Allergy Rash Verified 10/27/20 22:12 Antibiotics) eggs AdvReac Unknown Uncoded 10/27/20 22:12 lactose AdvReac Unknown Uncoded 10/27/20 22:12 - Social History Does the pt smoke?: No Smoking Status: Never smoker - Immunizations Immunizations are current?: Yes PD ED PE NORMAL - Vitals Vital signs reviewed: Yes - General General: Alert and oriented X 3, Well developed/nourished - HEENT HEENT: Moist mucous membranes - Cardiac Cardiac: RRR, No murmur - Respiratory Respiratory: No respiratory distress, Clear bilaterally - Abdomen Abdomen: Soft, Other (mild RLQ TTP) - Back Back: No CVA TTP - Derm Derm: Normal color, Warm and dry, No rash - Extremities Extremities: No edema Results - Vitals Vitals: Oxygen O2 Source Room air - Labs Labs: Microbiology 10/27/20 22:24 Urine Culture - Final Urine,Clean Catch No growth Laboratory Tests 10/27/20 10/28/20 10/28/20 22:24 00:44 00:44 WBC 7.5 RBC 4.42 Hgb 13.1 Hct 39.4 MCV 89.1 MCH 29.6 MCHC 33.2 RDW 12.4 Plt Count 218 MPV 8.9 Neut # (Auto) 6.2 Lymph # (Auto) 0.7 L [place] # (Auto) 0.5 Eos # (Auto) 0.1 Baso # (Auto) 0.0 Absolute Nucleated RBC 0.00 Nucleated RBC % 0.0 Sodium 139 Potassium 3.9 Chloride 101 Carbon Dioxide 25 Anion Gap 13.0 BUN 21 H Creatinine 0.8 Estimated GFR (MDRD) 71 L Glucose 117 H Calcium 9.3 Total Bilirubin 0.8 AST 22 ALT 15 Alkaline Phosphatase 74 Total Protein 7.8 Albumin 4.4 Globulin 3.4 Albumin/Globulin Ratio 1.3 Lipase 36 Urine Color YELLOW Urine Clarity HAZY Urine pH 7.0 Ur Specific [place] 1.015 Urine Protein NEGATIVE Urine Glucose (UA) NEGATIVE Urine Ketones NEGATIVE Urine Occult Blood TRACE-INTA Urine Nitrite NEGATIVE Urine Bilirubin NEGATIVE Urine Urobilinogen 0.2 (NORMAL) Ur Leukocyte Esterase SMALL H Urine RBC 0-5 Urine WBC 11-25 H Ur Squamous Epith Cells NONE SEEN Urine Bacteria Few Ur Microscopic Review INDICATED Urine Culture Comments INDICATED - Rads (name of study) CT A/P with IV contrast Radiology: Prelim report reviewed, See rad report PD MEDICAL DECISION MAKING - ED course Complexity details: reviewed results, re-evaluated patient, considered differential, d/w patient ED course: patient presents with right flank pain that began this morning. She has mild right lower quadrant tenderness on exam and thus CT abdomen and pelvis with IV contrast is performed. Her blood tests are unremarkable. her urinalysis has small amount of white blood cells. However, she does not have urinary tract infection symptoms and the CT is unremarkable including no findings to suggest a urinary tract infection or pyelonephritis. Thus, antibiotics are not given. She reports good pain relief with IV Toradol. An etiology for her symptoms as not found. She is encouraged to return if worse, and to follow up with her primary care provider. Departure - Departure Disposition: 01 Home, Self Care Clinical Impression: Acute flank pain Condition: Good Instructions: ED Flank Pain Uncertain Cause Follow-Up: Erika Holley PA-C [Primary Care Provider] - Within 3 Days Discharge Date/Time: 10/28/20 03:42
[2020-10-28] MEDS ORDERED: KETOROLAC 30 MG/ML VIAL IVP STA (00:39)
[2020-10-28 00:49] LABS: BASOPHILS % (AUTO) 0.5 %; EOSINOPHILS # (AUTO) 0.1 10^3/uL (0.0-0.7); EOSINOPHILS % (AUTO) 0.7 %; HCT - HEMATOCRIT 39.4 % (37.0-47.0); HGB - HEMOGLOBIN 13.1 g/dL (12.0-16.0); LYMPHOCYTES # (AUTO) 0.7 10^3/uL (1.5-3.5); LYMPHOCYTES % (AUTO) 9.5 %; MEAN CORPUSCULAR HEMOGLOBIN 29.6 pg (27.0-31.0); MEAN CORPUSCULAR HGB CONC 33.2 g/dL (32.0-36.0); MEAN CORPUSCULAR VOLUME 89.1 fL (81.0-99.0); MEAN PLATELET VOLUME 8.9 fL (7.9-10.8); MONOCYTES # (AUTO) 0.5 10^3/uL (0.0-1.0); NEUTROPHILS # (AUTO) 6.2 10^3/uL (1.5-6.6); PLT - PLATELET COUNT 218 10^3/uL (130-450); RED BLOOD COUNT 4.42 10^6/uL (4.20-5.40); RED CELL DISTRIBUTION WIDTH 12.4 % (12.0-15.0); WHITE BLOOD COUNT 7.5 x10^3/uL (4.8-10.8)
[2020-10-28 01:06] LABS: ALBUMIN 4.4 g/dL (3.2-5.5); ALBUMIN/GLOBULIN RATIO 1.3 (1.0-2.2); BILIRUBIN,TOTAL 0.8 mg/dL (0.2-1.0); CALCIUM 9.3 mg/dL (8.5-10.3); CREATININE 0.8 mg/dL (0.4-1.0); POTASSIUM 3.9 mmol/L (3.5-5.0); TOTAL PROTEIN 7.8 g/dL (6.7-8.2)
[2020-10-28] MEDS ORDERED: IOVERSOL 320 100 ML VIAL IVP ONE ×2 (01:40→02:19)
[2020-10-28 03:43] VITALS: BP 137/75
--- NOTE | 2020-10-28 10:36 | CT Report ---
PROCEDURE: Abdomen/Pelvis W INDICATIONS: abd. pain, right flank pain CONTRAST: IV CONTRAST: Optiray 320 ml: 100 PO CONTRAST: *NO PO CONTRAST TECHNIQUE: After the administration of IV contrast, 5 mm thick sections acquired from the diaphragms to the symp hysis. 5 mm thick coronal and sagittal reformats were acquired. For radiation dose reduction, the f ollowing was used: automated exposure control, adjustment of mA and/or kV according to patient size. COMPARISON: 07/25/2020 FINDINGS: Image quality: There is artifact associated with the metallic hardware. ABDOMEN: Lung bases: Lung bases are clear. Heart size is normal. A small hiatal hernia is incidentally note d. Solid organs: Liver and spleen are normal in size and enhancement. Gallbladder wall does not appear thickened. Biliary system is non dilated. Pancreas enhances normally. No adrenal nodules. Kidn eys demonstrate normal size and enhancement, without hydronephrosis. A tiny 1 mm nonobstructing ston e is seen within the right kidney, as on series 3 image 37. Peritoneum and bowel: Bowel loops demonstrate normal wall thickness and caliber. No free fluid or a ir. Nodes and vessels: No retroperitoneal or mesenteric adenopathy by size criteria. Aorta and inferior vena cava are normal in size. Miscellaneous: No ventral hernias. PELVIS: Genitourinary: Bladder wall thickness is normal. The uterus demonstrates an unremarkable appearance for age. No adnexal masses are seen. There is a stable right ovarian cyst. Miscellaneous: No inguinal hernias or adenopathy. Bones: Left hip arthroplasty hardware is seen, with associated streak artifact. No suspicious bony l esions. No vertebral body compression fractures. Age-appropriate degenerative changes are seen, whi ch are most prominent involving the lower lumbar spine. Mild dextroconvex scoliotic curvature is seen . IMPRESSION: No significant acute abnormality is seen. Negative for hydronephrosis. Incidental note is made of: Small hiatal hernia Tiny nonobstructing right-sided kidney stone Left hip arthroplasty hardware Note: No significant discrepancy from the preliminary report. Reviewed by: Alexandru Garduno MD on 10/28/2020 9:35 AM PADDY Approved by: Alexandru Garduno MD on 10/28/2020 9:35 AM AKDT Station ID: [id number]
== END 2020-10-28 03:42 | disposition home or self-care (01) ==
LOC: ED 21:58
DX: R10.9 Unspecified abdominal pain (principal); I10 Essential (primary) hypertension
CPT/HCPCS: 36415; 74177; 80053; 81001; 83690; 85025; 87086; 96374; 99284; Q9967; 81003

== ENCOUNTER 2020-12-24 07:00 | Outpatient (CLI) | payer MEDICARE, OTHER ==
--- NOTE | 2020-12-24 11:26 | XRAY Report ---
PROCEDURE: Wrist 3 View LT INDICATIONS: L WRIST PX TECHNIQUE: 3 views of the wrist were acquired. COMPARISON: None FINDINGS: Bones: No fractures or dislocations. No suspicious bony lesions. Moderate triscaphe joint osteoart hritis. Soft tissues: No suspicious soft tissue calcifications. IMPRESSION: Osteoarthritis. Reviewed by: Hillary Garcia MD, PhD on 12/24/2020 11:25 AM PDT Approved by: Hillary Garcia MD, PhD on 12/24/2020 11:25 AM PDT Station ID: [id number]
--- NOTE | 2020-12-24 16:11 | XRAY Report ---
PROCEDURE: Shoulder 2 View LT INDICATIONS: L WRIST AND SHOULDER PX TECHNIQUE: 2 views of the shoulder were acquired. COMPARISON: None. FINDINGS: Bones: No fractures or dislocations, but there is moderate AC joint osteoarthritis.. No suspicious bony lesions. Visualized ribs appear intact. Soft tissues: No suspicious soft tissue calcifications. IMPRESSION: Reviewed by: Jose Antonio Del Valle MD on 12/24/2020 4:10 PM PDT Approved by: Jose Antonio Del Valle MD on 12/24/2020 4:10 PM PDT Station ID: [id number]
== END 2020-12-24 23:59 | disposition home or self-care (01) ==
LOC: DI.N 07:00
PROVIDERS: ATTEND Nurse Practitioner
DX: M19.032 Primary osteoarthritis, left wrist (principal); M19.012 Primary osteoarthritis, left shoulder

== ENCOUNTER 2020-12-24 09:50 | Outpatient (CLI) | payer MEDICARE, OTHER | END 2020-12-24 23:59 | disposition home or self-care (01) | LOC: LAB.N 09:50 | PROVIDERS: ATTEND Nurse Practitioner | DX: M19.032 Primary osteoarthritis, left wrist (principal); M19.012 Primary osteoarthritis, left shoulder; M10.9 Gout, unspecified | CPT/HCPCS: 36415; 84550 ==

== ENCOUNTER 2021-01-02 10:45 | Outpatient (CLI) | payer MEDICARE, OTHER ==
[2021-01-02 17:51] LABS: HCT - HEMATOCRIT 43.1 % (37.0-47.0); HGB - HEMOGLOBIN 13.6 g/dL (12.0-16.0); MEAN CORPUSCULAR HEMOGLOBIN 28.9 pg (27.0-31.0); MEAN CORPUSCULAR HGB CONC 31.6 g/dL (32.0-36.0); MEAN CORPUSCULAR VOLUME 91.7 fL (81.0-99.0); MEAN PLATELET VOLUME 9.8 fL (7.9-10.8); RED BLOOD COUNT 4.7 10^6/uL (4.20-5.40); RED CELL DISTRIBUTION WIDTH 12.7 % (12.0-15.0)
[2021-01-02 18:24] LABS: URIC ACID 4.4 mg/dL (2.6-7.2)
[2021-01-02 18:53] LABS: RHEUMATOID FACTOR NEGATIVE (Negative)
[2021-01-02 18:59] LABS: CRP - C-REACTIVE PROTEIN < 1.0 mg/dL (0-1.0)
[2021-01-04 14:31] LABS: CYCLIC CITRULL PEPTIDE CCP IGG <16 UNITS
[2021-01-04 17:56] LABS: DNA (DS) ANTIBODY <1 IU/mL
[2021-01-05 22:26] LABS: ANA PATTERN Nuclear, Speckled; ANA SCREEN POSITIVE (NEGATIVE)
== END 2021-01-02 23:59 | disposition home or self-care (01) ==
LOC: LAB.N 10:45
PROVIDERS: ATTEND Family Medicine
DX: M19.032 Primary osteoarthritis, left wrist (principal)
CPT/HCPCS: 36415; 84550; 85027; 85651; 86038; 86140; 86200; 86225; 86430

== ENCOUNTER 2021-01-27 12:37 | Outpatient (CLI) | payer MEDICARE, OTHER ==
--- NOTE | 2021-01-27 17:59 | DEXA Report ---
PROCEDURE: Dexa Spine and/or Hip INDICATIONS: OSTEOPOROSIS TECHNIQUE: Dual energy x-ray absorptiometry (DXA) was performed on a [employer] System. Regions measur ed are the AP Spine, femoral neck, and if needed forearm. COMPARISON: 11/13/2019 FINDINGS: Lumbar Spine: Bone Mineral Density 0.925 g/cm/cm,T score -2.1, osteopenia, change from previous 1.6% Right Hip: Bone Mineral Density 0.734 g/cm/cm,T score -2.2, osteopenia, change from previous -2.9% Right Femoral Neck: Bone Mineral Density 0.737 g/cm/cm, T score -2.2, osteopenia (T score greater or equal to -1.0: NORMAL) (T score from -1.1 to -2.4: OSTEOPENIA) (T score less than or equal to -2.5 to: OSTEOPOROSIS) Impression: 1. No significant change in bone mineral density.. 2. Osteopenia elevates the patient's 10 year fracture risk. Patients with diagnosis of osteoporosis or osteopenia should have regular bone mineral density assess ment. For those eligible for Medicare, routine testing is allowed once every 2 years. Testing frequ ency can be increased for patients who have rapidly progressing disease or for those who are receivin g medical therapy to restore bone mass. Reviewed by: Jailene Villafuerte MD on 01/27/2021 5:58 PM PDT Approved by: Jailene Villafuerte MD on 01/27/2021 5:58 PM PDT Station ID: [id number]
== END 2021-01-27 12:38 | disposition home or self-care (01) ==
LOC: DI 12:37
PROVIDERS: ATTEND Internal Medicine Endocrinology, Diabetes & Metabolism
DX: M85.89 Other specified disorders of bone density and structure, multiple sites (principal)

== ENCOUNTER 2021-02-05 09:45 | Emergency (ER) | payer MEDICARE, OTHER ==
--- NOTE | 2021-02-05 10:01 | ED Physician Documentation ---
History of Present Illness - Stated complaint Stated Complaint: LT WRIST SWELLING/PX - History obtained from History obtained from: Patient - Additonal information Additional information: Generally healthy 70-year-old woman had minor trauma to the left wrist towards the end of November. That night or the next day developed significant pain in the left wrist. She was seen in the clinic, x-ray was done of the left wrist showing osteoarthritis but otherwise negative. She was initially tried diagnosed with gout and treated for that without relief. Subsequently had 2 serum uric acids test that were negative. Also had a normal CBC, sed rate, CRP, rheumatoid factor, CCP. She did have a positive CHRISTINE screen with a titer of 1-80 and a pattern of nuclear, speckled and secondary pattern of cytoplasmic. She was on steroids for a few days at one point which was helpful. 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 : Incontinence, Frequency HEENT: None Psych: None Musculoskeletal: None Derm: None - Past Surgical History Past Surgical History: Yes Ortho: Hip replacement, Other - Present Medications Home Medications: Ambulatory Orders Medication Instructions Recorded Confirmed Ascorbate Calcium [Vitamin C] 300 mg PO DAILY 12/07/12 02/05/21 Calcium Crb,Cit/D3/Min34/[place] 1 each PO DAILY 12/07/12 02/05/21 [Citracal + Bone Density Tablet] Ibuprofen [Motrin] 100 mg PO DAILY PRN 12/07/12 02/05/21 Cholecalciferol (Vitamin D3) 2,000 unit PO DAILY 11/16/17 02/05/21 [Vitamin D] Levothyroxine [Synthroid] 25 mcg PO QDAC 11/16/17 02/05/21 Ubidecarenone [Co Q-10] 300 mg PO DAILY 11/16/17 02/05/21 Vitamin B Complex 1 tab PO DAILY 10/25/20 02/05/21 Vitamin K2 100 mcg PO DAILY 10/25/20 02/05/21 predniSONE [Deltasone] 10 mg PO DAILY #30 tablet 02/05/21 - Allergies Allergies/Adverse Reactions: Allergies Allergy/AdvReac Type Severity Reaction Status Date / Time Sulfa (Sulfonamide Allergy Rash Verified 02/05/21 10:05 Antibiotics) Egg Derived AdvReac Unknown Verified 02/05/21 10:34 lactose AdvReac Unknown Verified 02/05/21 10:34 - Social History Does the pt smoke?: No Smoking Status: Never smoker Does the pt drink ETOH?: No Does the pt have substance abuse?: No - Immunizations Immunizations are current?: Yes - POLST Patient has POLST: No PD ED PE NORMAL - Vitals Vital signs reviewed: Yes - General General: Alert and oriented X 3, No acute distress - Extremities Extremities: Other (Left wrist is warm but not hot, she does have limited range of motion due to pain but not to the extent one would expect with a septic joint. Negative de Quervain's testing.) - Neuro Neuro: Alert and oriented X 3, Normal speech Results - Vitals Vitals: Vital Signs - 24 hr 02/05/21 09:48 Temperature 36.2 C L Heart Rate 71 Respiratory 16 Rate Blood Pressure 192/97 H O2 Saturation 95 Oxygen O2 Source Room air Procedures - General procedure General procedure: After verbal informed consent and discussion of risks and benefits the left wrist was sterilely draped and locally infiltrated with lidocaine. The joint was accessed with an 18-gauge needle and there was no effusion to aspirate. 2 mL of 0.5% bupivacaine and 30 mg of Kenalog was injected. PD MEDICAL DECISION MAKING - ED course ED course: Previous work-up reviewed, x-ray showing osteoarthritis, normal sed rate and CRP. Positive CHRISTINE with a nuclear speckled pattern. 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 Case discussed by phone with our on-call orthopedist who agreed with intra-articular steroid injection and potentially oral steroids as well. Departure - Departure Disposition: 01 Home, Self Care Clinical Impression: Monoarthritis, Positive CHRISTINE (antinuclear antibody) Condition: Good Record reviewed to determine appropriate education?: Yes Prescriptions: predniSONE [Deltasone] 10 mg PO DAILY #30 tablet Comments: As discussed, based on previous results and the positive CHRISTINE screen it is likely that you have some sort of autoimmune condition causing your joint pain in the left wrist. Today we gave you an injection in the wrist of a mixture of bupivacaine which is a long-acting anesthetic and triamcinolone which is a long- acting steroid. Follow-up with EDDA Holley before the end of the month to discuss ongoing steroid therapy. If you do fill the prescription for steroids, after a little bit you can cut it down to half a pill a day to try to minimize the total dose. Continue your efforts to try to get in with rheumatology. Hopefully though the steroids will give you more long-lasting relief. Return for new or worsening symptoms.
[2021-02-05] MEDS ORDERED: ROPIVACAINE 0.5% PF 20 ML VIAL SUBQ STA (10:19)
[2021-02-05] MEDS ORDERED: TRIAMCINOLONE 40 MG/ML VIAL IM STA (10:19)
[2021-02-05] MEDS ORDERED: BUPIVACAINE 0.5% PF 30 ML VIAL SUBQ ONE (10:31)
[2021-02-05] MEDS ORDERED: BUPIVACAINE 0.25% PF 30 ML VIAL SUBQ STA (10:34)
[2021-02-05] MEDS ORDERED: BUPIVACAINE 0.5% PF 10 ML VIAL IU ONE (11:00)
[2021-02-05 14:02] VITALS: BP 167/87
== END 2021-02-05 11:30 | disposition home or self-care (01) ==
LOC: ED 09:45
DX: M13.132 Monoarthritis, not elsewhere classified, left wrist (principal); R76.8 Other specified abnormal immunological findings in serum; I10 Essential (primary) hypertension
CPT/HCPCS: 20605

== ENCOUNTER 2021-02-07 08:00 | Outpatient (CLI) | payer MEDICARE, OTHER ==
[2021-02-07 14:17] LABS: ALBUMIN/GLOBULIN RATIO 1.1 (1.0-2.2); BILIRUBIN,TOTAL 0.9 mg/dL (0.2-1.0); CALCIUM 9.1 mg/dL (8.5-10.3); CREATININE 0.9 mg/dL (0.4-1.0); POTASSIUM 4.1 mmol/L (3.5-5.0); TOTAL PROTEIN 7.7 g/dL (6.7-8.2)
== END 2021-02-07 23:59 | disposition home or self-care (01) ==
LOC: LAB.WCP 08:00
PROVIDERS: ATTEND Physician Assistant Medical
DX: E78.5 Hyperlipidemia, unspecified (principal)
CPT/HCPCS: 36415; 80048; 80053

== ENCOUNTER 2021-03-13 14:41 | Outpatient (CLI) | payer MEDICARE, OTHER ==
[2021-03-13 18:41] LABS: CHOL/HDL RATIO 3.2 (<4.4); CHOLESTEROL 212 mg/dL; HDL CHOLESTEROL 67 mg/dL; LDL CHOLESTEROL,CALCULATED 129 mg/dL; LDL/HDL RATIO 1.9 (<4.4); TRIGLYCERIDES 78 mg/dL; VLDL CHOLESTEROL 16 mg/dL
[2021-03-13 18:42] LABS: THYROID STIMULATING HORMONE 3.13 uIU/mL (0.34-5.60)
== END 2021-03-13 23:59 | disposition home or self-care (01) ==
LOC: LAB.WCP 14:41
PROVIDERS: ATTEND Physician Assistant Medical
DX: E78.5 Hyperlipidemia, unspecified (principal); E06.3 Autoimmune thyroiditis
CPT/HCPCS: 36415; 80061; 83721; 84443

== ENCOUNTER 2021-04-25 08:00 | Outpatient (CLI) | payer MEDICARE, OTHER | END 2021-04-25 23:59 | disposition home or self-care (01) | LOC: LAB.N 08:00 | PROVIDERS: ATTEND Family Medicine | DX: U07.1 COVID-19 (principal) ==

== ENCOUNTER 2021-07-31 08:39 | Outpatient (CLI) | payer MEDICARE, OTHER ==
[2021-07-31 08:57] LABS: BASOPHILS % (AUTO) 1.3 %; EOSINOPHILS # (AUTO) 0.1 10^3/uL (0.0-0.7); EOSINOPHILS % (AUTO) 2.2 %; HCT - HEMATOCRIT 41.4 % (37.0-47.0); HGB - HEMOGLOBIN 13.7 g/dL (12.0-16.0); LYMPHOCYTES # (AUTO) 0.8 10^3/uL (1.5-3.5); LYMPHOCYTES % (AUTO) 24.8 %; MEAN CORPUSCULAR HEMOGLOBIN 29.4 pg (27.0-31.0); MEAN CORPUSCULAR HGB CONC 33.1 g/dL (32.0-36.0); MEAN CORPUSCULAR VOLUME 88.8 fL (81.0-99.0); MEAN PLATELET VOLUME 9.2 fL (7.9-10.8); MONOCYTES # (AUTO) 0.3 10^3/uL (0.0-1.0); MONOCYTES % (AUTO) 9.9 %; NEUTROPHILS # (AUTO) 1.9 10^3/uL (1.5-6.6); NEUTROPHILS % (AUTO) 61.8 %; PLT - PLATELET COUNT 194 10^3/uL (130-450); RED BLOOD COUNT 4.66 10^6/uL (4.20-5.40); RED CELL DISTRIBUTION WIDTH 12.8 % (12.0-15.0); WHITE BLOOD COUNT 3.1 x10^3/uL (4.8-10.8)
[2021-07-31 09:19] LABS: BUN - BLOOD UREA NITROGEN 23 mg/dL (6-20); CALCIUM 9.1 mg/dL (8.5-10.3); CARBON DIOXIDE - CO2 27 mmol/L (21-32); CHLORIDE 100 mmol/L (101-111); CHOL/HDL RATIO 3.3 (<4.4); CHOLESTEROL 218 mg/dL; GFR - MDRD 55 (>89); GLUCOSE 92 mg/dL (70-100); HDL CHOLESTEROL 66 mg/dL; LDL CHOLESTEROL,CALCULATED 141 mg/dL; LDL/HDL RATIO 2.1 (<4.4); SODIUM 136 mmol/L (135-145); TRIGLYCERIDES 57 mg/dL; VLDL CHOLESTEROL 11 mg/dL
[2021-07-31 09:30] LABS: THYROID STIMULATING HORMONE 7.32 uIU/mL (0.34-5.60)
[2021-07-31 10:08] LABS: FREE T4 (FREE THYROXINE) 0.8 ng/dL (0.58-1.64)
== END 2021-07-31 08:40 | disposition home or self-care (01) ==
LOC: LAB 08:39
PROVIDERS: ATTEND Physician Assistant Medical
DX: E78.5 Hyperlipidemia, unspecified (principal); E06.3 Autoimmune thyroiditis; I10 Essential (primary) hypertension
CPT/HCPCS: 36415; 80048; 80061; 83721; 84439; 84443; 85025

== ENCOUNTER 2021-08-19 15:47 | Outpatient (CLI) | payer MEDICARE, OTHER ==
--- NOTE | 2021-08-19 16:51 | Ultrasound Report ---
PROCEDURE: Head or Neck Soft Tissue INDICATIONS: MULTINODULAR GOITER TECHNIQUE: Real-time scanning was performed of the thyroid gland, with image documentation. COMPARISON: None FINDINGS: Right: Thyroid lobe measures 6.3 x 4.2 x 2.7 cm, and is diffusely heterogeneous with innumerable nod ules. Left: Thyroid lobe measures 5.6 x 3.2 x 1.9 cm, and is diffusely heterogeneous with innumerable nodu les. Isthmus: None mm thick. IMPRESSION: Multinodular goiter. ACR TI-RADS definitions and recommendations: TI-RADS 1 (benign): 0 points. FNA not needed. TI-RADS 2 (not suspicious): 2 points. FNA not needed. TI-RADS 3 (mildly suspicious): 3 points. "FNA if 2.5 cm or larger, follow up if 1.5 cm or larger (at 1, 3, and 5 years). TI-RADS 4 (moderately suspicious): 4-6 points. "FNA if 1.5 cm or larger, follow up if 1 cm or larger (at 1, 2, 3, and 5 years). TI-RADS 5 (highly suspicious): 7 points or more. "FNA if 1 cm or larger, follow up if 0.5 cm or larger (every year for 5 years). Reviewed by: Lonnie Akins MD on 08/19/2021 4:49 PM PDT Approved by: Lonnie Akins MD on 08/19/2021 4:49 PM PDT Station ID: [id number]
== END 2021-08-19 15:48 | disposition home or self-care (01) ==
LOC: DI 15:47
PROVIDERS: ATTEND Physician Assistant Medical
DX: E04.2 Nontoxic multinodular goiter (principal)

== ENCOUNTER 2021-08-21 08:50 | Outpatient (CLI) | payer MEDICARE, OTHER ==
[2021-08-21 09:34] LABS: THYROID STIMULATING HORMONE 6.57 uIU/mL (0.34-5.60)
[2021-08-21 10:30] LABS: FREE T4 (FREE THYROXINE) 0.77 ng/dL (0.58-1.64)
== END 2021-08-21 08:51 | disposition home or self-care (01) ==
LOC: LAB 08:50
PROVIDERS: ATTEND Physician Assistant Medical
DX: E06.3 Autoimmune thyroiditis (principal)
CPT/HCPCS: 36415; 84439; 84443

== ENCOUNTER 2021-10-01 13:07 | Outpatient (CLI) | payer MEDICARE, OTHER ==
--- NOTE | 2021-10-03 16:19 | Mammography Report ---
BILATERAL DIGITAL SCREENING MAMMOGRAM 3D/2D: 10/01/2021 CLINICAL: Routine screening. Comparison is made to exams dated: 10/09/2020 ultrasound, 10/09/2020 mammogram, 07/15/2020 mammogram, mammogram, 11/16/2017 mammogram, and 09/15/2016 mammogram - [facility]. The re are scattered fibroglandular elements in both breasts. No significant masses, calcifications, or other findings are seen in either breast. There has been no significant interval change. IMPRESSION: NEGATIVE There is no mammographic evidence of malignancy. A 1 year screening mammogram is recommended. This exam was interpreted at Station ID: [id number]. NOTE: For mammograms, a report in lay terms will be sent to the patient. Approximately 15% of breast malignancies will not be visualized mammographically. In the management of a palpable breast mass, a negative mammogram must not discourage biopsy of a clinically suspicious lesion. Electronically Signed By: Tra Sands M.D., jr/shaun:10/01/2021 15:10:02 ACR BI-RADS Category 1: Negative 3341F PARENCHYMAL PATTERN: (A) - The breast(s) demonstrate(s) scattered fibroglandular densities. BI-RADS CATEGORY: (1) - 1 RECOMMENDATION: (ANNUAL) - Recommend routine annual screening mammography. 20221002 1 year screening LATERALITY: (B)
== END 2021-10-01 13:08 | disposition home or self-care (01) ==
LOC: DI.N 13:07
DX: Z12.31 Encounter for screening mammogram for malignant neoplasm of breast (principal)

== ENCOUNTER 2021-10-07 11:11 | Outpatient (CLI) | payer MEDICARE, OTHER ==
--- NOTE | 2021-10-07 16:50 | XRAY Report ---
PROCEDURE: Ankle 3 View LT INDICATIONS: OTHER FRACTURE OF LEFT LOWER LEG TECHNIQUE: 3 views of the ankle were acquired. COMPARISON: None FINDINGS: Bones: No fractures or dislocations. Ankle mortise is normally aligned. No suspicious bony lesions . Soft tissues: Lateral malleolar soft tissue edema. Achilles tendon appears normal. IMPRESSION: Lateral malleolar soft tissue edema. No visualized acute fracture or dislocation. Howeve r, occult injury cannot be excluded. Recommend short interval imaging follow-up in 7-10 days as clini cathi indicated for additional evaluation. Reviewed by: Eloise Mcclure MD on 10/07/2021 4:48 PM PDT Approved by: Eloise Mcclure MD on 10/07/2021 4:48 PM PDT Station ID: [id number]
== END 2021-10-07 11:12 | disposition home or self-care (01) ==
LOC: DI 11:11
PROVIDERS: ATTEND Physician Assistant Medical
DX: S82.892A Other fracture of left lower leg, initial encounter for closed fracture (principal); R60.0 Localized edema

== ENCOUNTER 2022-04-25 14:39 | Emergency (ER) | payer MEDICARE, OTHER ==
[2022-04-25 15:40] LABS: BASOPHILS % (AUTO) 0.4 %; EOSINOPHILS % (AUTO) 0.7 %; HCT - HEMATOCRIT 44.6 % (37.0-47.0); HGB - HEMOGLOBIN 14.4 g/dL (12.0-16.0); LYMPHOCYTES # (AUTO) 0.9 10^3/uL (1.5-3.5); LYMPHOCYTES % (AUTO) 14.9 %; MEAN CORPUSCULAR HEMOGLOBIN 28.7 pg (27.0-31.0); MEAN CORPUSCULAR HGB CONC 32.3 g/dL (32.0-36.0); MEAN CORPUSCULAR VOLUME 88.8 fL (81.0-99.0); MEAN PLATELET VOLUME 9.1 fL (7.9-10.8); MONOCYTES # (AUTO) 0.5 10^3/uL (0.0-1.0); MONOCYTES % (AUTO) 8.6 %; NEUTROPHILS # (AUTO) 4.3 10^3/uL (1.5-6.6); NEUTROPHILS % (AUTO) 75.2 %; PLT - PLATELET COUNT 202 10^3/uL (130-450); RED BLOOD COUNT 5.02 10^6/uL (4.20-5.40); RED CELL DISTRIBUTION WIDTH 12.3 % (12.0-15.0); WHITE BLOOD COUNT 5.7 x10^3/uL (4.8-10.8)
[2022-04-25 15:53] LABS: ALBUMIN 4.3 g/dL (3.2-5.5); ALBUMIN/GLOBULIN RATIO 1.2 (1.0-2.2); BILIRUBIN,TOTAL 0.7 mg/dL (0.2-1.0); CALCIUM 9.6 mg/dL (8.5-10.3); POTASSIUM 4.2 mmol/L (3.5-5.0); TOTAL PROTEIN 7.8 g/dL (6.7-8.2)
--- NOTE | 2022-04-25 15:58 | ED Physician Documentation ---
PD HPI ABD PAIN - Stated complaint Stated Complaint: ABD PX - Chief complaint Chief Complaint: Abd Pain - History obtained from History obtained from: Patient - History of Present Illness Timing - onset: How many days ago (3) Timing - duration: Days (3) Timing - details: Gradual onset Pain level max: 5 Pain level now: 4 Quality: Cramping, Aching, Pain Location: All over / everywhere Radiation: Chest Improved by: Other (nothing) Worsened by: Eating Associated symptoms: Nausea, Vomiting, Diarrhea. No: Fever, Melena, Hematochezia, Dysuria, Hematuria - Additional information Additional information: Patient is a 72-year-old female who presents to the emergency department with abdominal pain. This been ongoing for the past 3days. She states that it started on Wednesday night, vomiting and diarrhea. Has had continued cramping today. No fevers. No chills. Worse with eating and drinking, nothing makes it better. was sick with same. 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 : Incontinence, Frequency HEENT: None Psych: None Musculoskeletal: None Derm: None - Past Surgical History Past Surgical History: Yes Ortho: Hip replacement, Other - Present Medications Home Medications: Ambulatory Orders Medication Instructions Recorded Confirmed Ascorbate Calcium [Vitamin C] 300 mg PO DAILY 12/07/12 02/05/21 Calcium Crb,Cit/D3/Min34/[place] 1 each PO DAILY 12/07/12 02/05/21 [Citracal + Bone Density Tablet] Ibuprofen [Motrin] 100 mg PO DAILY PRN 12/07/12 02/05/21 Cholecalciferol (Vitamin D3) 2,000 unit PO DAILY 11/16/17 02/05/21 [Vitamin D] Levothyroxine [Synthroid] 25 mcg PO QDAC 11/16/17 02/05/21 Ubidecarenone [Co Q-10] 300 mg PO DAILY 11/16/17 02/05/21 Vitamin B Complex 1 tab PO DAILY 10/25/20 02/05/21 Vitamin K2 100 mcg PO DAILY 10/25/20 02/05/21 predniSONE [Deltasone] 10 mg PO DAILY #30 tablet 02/05/21 Dicyclomine [Bentyl] 10 mg PO QID PRN #30 cap 04/25/22 Ondansetron Odt [Zofran] 4 mg TL Q6H PRN #10 tablet 04/25/22 - Allergies Allergies/Adverse Reactions: Allergies Allergy/AdvReac Type Severity Reaction Status Date / Time Sulfa (Sulfonamide Allergy Rash Verified 02/05/21 10:05 Antibiotics) Egg Derived AdvReac Unknown Verified 02/05/21 10:34 lactose AdvReac Unknown Verified 02/05/21 10:34 - Social History Does the pt smoke?: No Smoking Status: Never smoker Does the pt drink ETOH?: No Does the pt have substance abuse?: No - Immunizations Immunizations are current?: Yes - POLST Patient has POLST: No PD ED PE NORMAL - Vitals Vital signs reviewed: Yes - General General: Alert and oriented X 3, No acute distress, Well developed/nourished - HEENT HEENT: PERRL, Moist mucous membranes - Neck Neck: Supple, no meningeal sign - Cardiac Cardiac: RRR, Strong equal pulses - Respiratory Respiratory: No respiratory distress, Clear bilaterally - Abdomen Abdomen: Normal bowel sounds, Soft, Non tender, Non distended - Back Back: No CVA TTP - Derm Derm: Warm and dry - Extremities Extremities: No edema - Neuro Neuro: Alert and oriented X 3 - Psych Psych: Normal mood, Normal affect Results - Vitals Vitals: Vital Signs - 24 hr 04/25/22 04/25/22 15:14 18:39 Temperature 37.2 C Heart Rate 69 70 Respiratory 18 18 Rate Blood Pressure 174/85 H 164/75 H O2 Saturation 98 99 Oxygen O2 Source Room air - Labs Labs: Laboratory Tests 04/25/22 04/25/22 04/25/22 15:32 15:32 15:49 WBC 5.7 RBC 5.02 Hgb 14.4 Hct 44.6 MCV 88.8 MCH 28.7 MCHC 32.3 RDW 12.3 Plt Count 202 MPV 9.1 Neut # (Auto) 4.3 Lymph # (Auto) 0.9 L [place] # (Auto) 0.5 Eos # (Auto) 0.0 Baso # (Auto) 0.0 Absolute Nucleated RBC 0.00 Nucleated RBC % 0.0 Sodium 139 Potassium 4.2 Chloride 101 Carbon Dioxide 28 Anion Gap 10.0 BUN 20 Creatinine 1.0 Estimated GFR (MDRD) 55 L Glucose 112 H Calcium 9.6 Total Bilirubin 0.7 AST 27 ALT 19 Alkaline Phosphatase 67 Total Protein 7.8 Albumin 4.3 Globulin 3.5 Albumin/Globulin Ratio 1.2 Lipase 40 Urine Color LIGHT YELLOW Urine Clarity CLEAR Urine pH 5.5 Ur Specific [place] <=1.005 Urine Protein NEGATIVE Urine Glucose (UA) NEGATIVE Urine Ketones NEGATIVE Urine Occult Blood TRACE-INTA Urine Nitrite NEGATIVE Urine Bilirubin NEGATIVE Urine Urobilinogen 0.2 (NORMAL) Ur Leukocyte Esterase NEGATIVE Ur Microscopic Review NOT INDICATED Urine Culture Comments NOT INDICATED - Rads (name of study) CT abdomen pelvis Radiology: Final report received, EMP read contemporaneously, See rad report PD MEDICAL DECISION MAKING - ED course Complexity details: reviewed results, re-evaluated patient, considered diffe rential, d/w patient ED course: Patient is well-appearing, nontoxic. Afebrile. Tolerating p.o. without difficulty. Appears to have a viral gastroenteritis. No acute findings on CT scan. Will place on Bentyl for cramping. We will also prescribe Zofran in case there is any more nausea or vomiting. No blood in the stool. No significant lab abnormalities. Patient counseled regarding signs and symptoms for which I believe and urgent re-evaluation would be necessary. Patient with good understanding of and agreement to plan and is comfortable going home at this siria e This document was made in part using voice recognition software. While efforts are made to proofread this document, sound alike and grammatical errors may occur. IMPRESSION: No dilated loops of small bowel are seen. No imaging explanation is found for the patient's presenting symptoms. Note is made of a 2.7 cm right adnexal cyst, which is similar to prior examinations and most likely benign. However, attention should be paid to this focus on any future follow-up studies. Additional findings: Small hiatal hernia 1 mm nonobstructing right-sided kidney stone Left hip arthroplasty hardware Departure - Departure Disposition: Home, Self Care Clinical Impression: Viral gastroenteritis Condition: Good Instructions: ED Gastroenteritis Viral Follow-Up: Erika Holley PA-C [Primary Care Provider] - As Needed Prescriptions: Dicyclomine [Bentyl] 10 mg PO QID PRN #30 cap PRN Reason: Abdominal Pain Ondansetron Odt [Zofran] 4 mg TL Q6H PRN #10 tablet PRN Reason: Nausea / Vomiting Comments: Drink plenty of fluids and rest. Return if you worsen. Your prescriptions were sent to [facility] in [place]. This appears to be a viral illness and should resolve on its own. Discharge Date/Time: 04/25/22 18:39
[2022-04-25] MEDS ORDERED: iohexoL-300 100 ML VIAL ONE (16:22)
[2022-04-25] MEDS ORDERED: SODIUM CHLORIDE 0.9% 1,000 ML IV STA (16:28)
[2022-04-25 16:33] LABS: BILIRUBIN,URINE NEGATIVE (NEGATIVE); GLUCOSE, URINE (UA) NEGATIVE (NEGATIVE); KETONES,URINE (UA) NEGATIVE (NEGATIVE); LEUKOCYTE ESTERASE, URINE NEGATIVE (NEGATIVE); NITRITE,URINE NEGATIVE (NEGATIVE); OCCULT BLOOD,URINE TRACE-INTA (NEGATIVE); PH,URINE 5.5 PH (5.0-7.5); PROTEIN,URINE NEGATIVE (NEGATIVE); UROBILINOGEN,URINE 0.2 (NORMAL) E.U./dL (NORMAL)
[2022-04-25 16:35] LABS: CLARITY,URINE CLEAR (CLEAR)
[2022-04-25] MEDS ORDERED: iohexoL-300 100 ML VIAL IVP ONE (16:59)
--- NOTE | 2022-04-25 17:20 | CT Report ---
PROCEDURE: ABDOMEN/PELVIS W INDICATIONS: diffuse abd pain, vomiting CONTRAST: 100ml omni 300 TECHNIQUE: After the administration of IV contrast, 5 mm thick sections acquired from the diaphragms to the symp hysis. 5 mm thick coronal and sagittal reformats were acquired. For radiation dose reduction, the f ollowing was used: automated exposure control, adjustment of mA and/or kV according to patient size. COMPARISON: 10/27/2020, 07/25/2020 FINDINGS: Image quality: There is artifact associated with the metallic hardware. ABDOMEN: Lung bases: Lung bases are clear. Heart size is normal. A small hiatal hernia is incidentally note d. Solid organs: Liver and spleen are normal in size and enhancement. Gallbladder wall does not appear thickened. Biliary system is non dilated. Pancreas enhances normally. No adrenal nodules. Kidn eys demonstrate normal size and enhancement, without hydronephrosis. A 1 mm nonobstructing right-[place] ed kidney stone is seen, as on series 6 image 32. Peritoneum and bowel: Bowel loops demonstrate normal wall thickness and caliber. No free fluid or a ir. What is believed to be a normal appendix is seen inferior to the cecum. Nodes and vessels: No retroperitoneal or mesenteric adenopathy by size criteria. Aorta and inferior vena cava are normal in size. Miscellaneous: No ventral hernias. PELVIS: Genitourinary: Bladder wall thickness is normal. And 2.7 cm right adnexal cyst is seen, as on serie s 3 image 65. Miscellaneous: No inguinal hernias or adenopathy. Bones: No suspicious bony lesions. No vertebral body compression fractures. Left hip arthroplasty h ardware is seen. IMPRESSION: No dilated loops of small bowel are seen. No imaging explanation is found for the patient's presenting symptoms. Note is made of a 2.7 cm right adnexal cyst, which is similar to prior examinations and most likely b enign. However, attention should be paid to this focus on any future follow-up studies. Additional findings: Small hiatal hernia 1 mm nonobstructing right-sided kidney stone Left hip arthroplasty hardware Reviewed by: Alexandru Garduno MD on 04/25/2022 4:18 PM AKST Approved by: Alexandru Garduno MD on 04/25/2022 4:18 PM AKST Station ID: [id number]
[2022-04-25] MEDS ORDERED: DICYCLOMINE 10 MG CAPSULE PO STA (17:40)
[2022-04-25] MEDS ORDERED: MAG HYDROX/AL HYDROX/SIMETH 30 ML UDC PO STA (17:40)
[2022-04-25] MEDS ORDERED: SUCRALFATE 1 GM/10 ML UDC PO STA (17:40)
[2022-04-25 18:40] VITALS: BP 164/75
== END 2022-04-25 18:39 | disposition home or self-care (01) ==
LOC: ED 14:39
DX: A08.4 Viral intestinal infection, unspecified (principal)
CPT/HCPCS: 36415; 74177; 80053; 81003; 83690; 85025; 99282; 99284; A9270; Q9967; 81001; 87086

== ENCOUNTER 2022-08-12 08:39 | Outpatient (CLI) | payer MEDICARE, OTHER ==
[2022-08-12 09:15] LABS: ALBUMIN/GLOBULIN RATIO 1.1 (1.0-2.2); ALKALINE PHOSPHATASE 70 IU/L (42-121); ALT ALANINE AMINOTRANSFERASE 18 IU/L (10-60); AST ASPARTATE AMINOTRANSFERASE 21 IU/L (10-42); BILIRUBIN,TOTAL 0.6 mg/dL (0.2-1.0); BUN - BLOOD UREA NITROGEN 24 mg/dL (6-20); CARBON DIOXIDE - CO2 28 mmol/L (21-32); CHLORIDE 105 mmol/L (101-111); CHOL/HDL RATIO 3.1 (<4.4); CHOLESTEROL 214 mg/dL; GFR - MDRD 55 (>89); GLUCOSE 101 mg/dL (70-100); HDL CHOLESTEROL 68 mg/dL; LDL CHOLESTEROL,CALCULATED 135 mg/dL; POTASSIUM 3.6 mmol/L (3.5-5.0); SODIUM 139 mmol/L (135-145); TOTAL PROTEIN 7.6 g/dL (6.7-8.2); TRIGLYCERIDES 54 mg/dL; VLDL CHOLESTEROL 11 mg/dL
[2022-08-12 09:25] LABS: THYROID STIMULATING HORMONE 10.23 uIU/mL (0.34-5.60)
[2022-08-12 10:12] LABS: FREE T4 (FREE THYROXINE) 0.88 ng/dL (0.58-1.64)
== END 2022-08-12 08:40 | disposition home or self-care (01) ==
LOC: LAB 08:39
PROVIDERS: ATTEND Physician Assistant Medical
DX: E78.5 Hyperlipidemia, unspecified (principal); E06.3 Autoimmune thyroiditis
CPT/HCPCS: 36415; 80053; 80061; 83721; 84439; 84443

== ENCOUNTER 2022-09-28 08:47 | Outpatient (CLI) | payer MEDICARE, OTHER ==
[2022-09-28 09:48] LABS: THYROID STIMULATING HORMONE 5.09 uIU/mL (0.34-5.60)
== END 2022-09-28 08:48 | disposition home or self-care (01) ==
LOC: LAB 08:47
PROVIDERS: ATTEND Physician Assistant Medical
DX: E04.2 Nontoxic multinodular goiter (principal)
CPT/HCPCS: 36415; 84443

== ENCOUNTER 2022-10-06 15:03 | Outpatient (CLI) | payer MEDICARE, OTHER ==
--- NOTE | 2022-10-07 10:53 | Mammography Report ---
BILATERAL DIGITAL SCREENING MAMMOGRAM 3D/2D: 10/06/2022 CLINICAL: Routine screening. Family history of breast cancer. Comparison is made to exams dated: 01/27/2022 breast MRI - [facility], 10/01/2021 mammogram , 10/09/2020 mammogram, 07/15/2020 mammogram, 01/18/2019 mammogram, and 11/16/2017 mammogram - [facility]. There are scattered areas of fibroglandular density in both breasts (category b / 25%-50% glandular t issue). No significant masses, calcifications, or other findings are seen in either breast. There has been no significant interval change. IMPRESSION: NEGATIVE There is no mammographic evidence of malignancy. A 1 year screening mammogram is recommended. Based on the Tyrer Cuzick model (a risk assessment model) the patients lifetime risk is 9.2% and her 10 year risk is 6.9%. According to the ACR, ACS, and NCCN guidelines, an annual breast MRI exam lux g with mammogram is recommended if the patients lifetime risk is 20% or greater. This exam was interpreted at Station ID: Unknown. NOTE: For mammograms, a report in lay terms will be sent to the patient. Approximately 15% of breast malignancies will not be visualized mammographically. In the management of a palpable breast mass, a negative mammogram must not discourage biopsy of a clinically suspicious lesion. Electronically Signed By: Atn De Paz M.D. lc/:10/07/2022 10:23:51 Entry: - 10/07/2022 10:23:51 letter sent: No_Letter ACR BI-RADS Category 1: Negative 3341F PARENCHYMAL PATTERN: (A) - The breast(s) demonstrate(s) scattered fibroglandular densities. BI-RADS CATEGORY: (1) - 1 Mammogram [id number] 1 year screening LATERALITY: (B)
== END 2022-10-06 15:04 | disposition home or self-care (01) ==
LOC: DI 15:03
DX: Z12.31 Encounter for screening mammogram for malignant neoplasm of breast (principal); Z80.3 Family history of malignant neoplasm of breast

== ENCOUNTER 2023-02-04 15:19 | Outpatient (CLI) | payer MEDICARE, OTHER ==
--- NOTE | 2023-02-04 16:26 | DEXA Report ---
PROCEDURE: Dexa Spine and/or Hip INDICATIONS: OSTEOPOROSIS TECHNIQUE: Dual energy x-ray absorptiometry (DXA) was performed on a Squla System. Regions measur ed are the AP Spine, femoral neck, and if needed forearm. COMPARISON: 01/27/2021, 11/13/2019 and 08/26/2018. FINDINGS: Lumbar Spine: Bone Mineral Density 0.903 g/cm/cm,T score -2.3. Osteopenia Left Femoral Neck: Bone Mineral Density 0.697 g/cm/cm, T score -2.5. Osteoporosis Left Hip: Bone Mineral Density 0.725 g/cm/cm,T score minus 2.. Osteopenia (T score greater or equal to -1.0: NORMAL) (T score from -1.1 to -2.4: OSTEOPENIA) (T score less than or equal to -2.5 to: OSTEOPOROSIS) Impression: By WHO criteria, this patient has osteoporosis. Bone mineral density has decreased 1.2% interval sinc e prior exam obtained 01/27/2021. Patients with diagnosis of osteoporosis or osteopenia should have regular bone mineral density assess ment. For those eligible for Medicare, routine testing is allowed once every 2 years. Testing frequ ency can be increased for patients who have rapidly progressing disease or for those who are receivin g medical therapy to restore bone mass. Reviewed by: Hillary Garcia MD, PhD on 02/04/2023 4:24 PM PDT Approved by: Hillary Garcia MD, PhD on 02/04/2023 4:24 PM PDT Station ID: [id number]
== END 2023-02-04 15:20 | disposition home or self-care (01) ==
LOC: DI 15:19
PROVIDERS: ATTEND Student in an Organized Health Care Education/Training Program
DX: M81.0 Age-related osteoporosis without current pathological fracture (principal)

== ENCOUNTER 2023-02-10 15:26 | Outpatient (CLI) | payer MEDICARE, OTHER ==
--- NOTE | 2023-02-11 11:39 | Ultrasound Report ---
PROCEDURE: Ultrasound thyroid INDICATIONS: HYPOTHYROIDISM TECHNIQUE: Real-time scanning was performed of the thyroid gland, with image documentation. COMPARISON: 08/19/2021 FINDINGS: Right: Thyroid lobe measures 7.1 x 4.4 x 2.3 cm, and is homogeneous in echotexture. Left: Thyroid lobe measures 5.7 x 3.4 x 1.7 cm, and is homogenous in echotexture. Isthmus: 5.4 mm thick. Nodule number: One Location: Right superior Size: 1.2 x 1.5 x 1.2 cm, previously 1.5 x 1.5 x 1.4 cm. Composition: Solid. Echogenicity: Isoechoic. Shape: wider than tall. Margins: Smooth (0 points). Echogenic foci: None (0 points). Total points: 3 ACR TI-RADS category: 3. Nodule number: Two Location: Right superior/mid Size: 2.7 x 1.4 x 2.2 cm, previously 2.8 x 1.5 0.4 cm cm. Composition: Solid. Echogenicity: Hypoechoic. Shape: wider than tall. Margins: Smooth (0 points). Echogenic foci: None (0 points). Total points: 4 ACR TI-RADS category: 4. Nodule number: Three Location: Right mid posterior Size: 1.4 x 1.2 x 1.1 cm, previously 2.1 x 1.2 x 1.7 cm. Composition: Solid. Echogenicity: Hypoechoic. Shape: wider than tall. Margins: Smooth (0 points). Echogenic foci: None (0 points). Total points: 4 ACR TI-RADS category: 4. Nodule number: Four Location: Right inferior/medial Size: 2.8 x 2.1 x 3.1 cm, prior 2.3 x 2.0 x 3.0 cm. Composition: Solid. Echogenicity: Hypoechoic. Shape: wider than tall. Margins: Smooth (0 points). Echogenic foci: None (0 points). Total points: 4 ACR TI-RADS category: 4. IMPRESSION: Stable multinodular goiter. ACR TI-RADS definitions and recommendations: TI-RADS 1 (benign): 0 points. FNA not needed. TI-RADS 2 (not suspicious): 2 points. FNA not needed. TI-RADS 3 (mildly suspicious): 3 points. "FNA if 2.5 cm or larger, follow up if 1.5 cm or larger (at 1, 3, and 5 years). TI-RADS 4 (moderately suspicious): 4-6 points. "FNA if 1.5 cm or larger, follow up if 1 cm or larger (at 1, 2, 3, and 5 years). TI-RADS 5 (highly suspicious): 7 points or more. "FNA if 1 cm or larger, follow up if 0.5 cm or larger (every year for 5 years). Reviewed by: Rickie Qureshi MD on 02/11/2023 10:38 AM PADDY Approved by: Rickie Qureshi MD on 02/11/2023 10:38 AM PADDY Station ID: [id number]
== END 2023-02-10 15:27 | disposition home or self-care (01) ==
LOC: DI 15:26
PROVIDERS: ATTEND Student in an Organized Health Care Education/Training Program
DX: E03.9 Hypothyroidism, unspecified (principal); E04.2 Nontoxic multinodular goiter

== ENCOUNTER 2023-05-10 08:59 | Outpatient (CLI) | payer MEDICARE, OTHER ==
[2023-05-10 09:09] LABS: BASOPHILS % (AUTO) 0.7 %; EOSINOPHILS # (AUTO) 0.1 10^3/uL (0.0-0.7); EOSINOPHILS % (AUTO) 2.2 %; HCT - HEMATOCRIT 41.6 % (37.0-47.0); HGB - HEMOGLOBIN 13.5 g/dL (12.0-16.0); LYMPHOCYTES # (AUTO) 1.1 10^3/uL (1.5-3.5); LYMPHOCYTES % (AUTO) 23.7 %; MEAN CORPUSCULAR HEMOGLOBIN 28.7 pg (27.0-31.0); MEAN CORPUSCULAR HGB CONC 32.5 g/dL (32.0-36.0); MEAN CORPUSCULAR VOLUME 88.5 fL (81.0-99.0); MEAN PLATELET VOLUME 9.1 fL (7.9-10.8); MONOCYTES # (AUTO) 0.4 10^3/uL (0.0-1.0); MONOCYTES % (AUTO) 8.9 %; NEUTROPHILS # (AUTO) 2.9 10^3/uL (1.5-6.6); NEUTROPHILS % (AUTO) 64.3 %; PLT - PLATELET COUNT 218 10^3/uL (130-450); RED CELL DISTRIBUTION WIDTH 12.5 % (12.0-15.0); WHITE BLOOD COUNT 4.5 x10^3/uL (4.8-10.8)
[2023-05-10 09:25] LABS: ALBUMIN 4.1 g/dL (3.2-5.5); ALBUMIN/GLOBULIN RATIO 1.4 (1.0-2.2); ALKALINE PHOSPHATASE 69 IU/L (42-121); ALT ALANINE AMINOTRANSFERASE 14 IU/L (10-60); AST ASPARTATE AMINOTRANSFERASE 14 IU/L (10-42); BILIRUBIN,TOTAL 0.6 mg/dL (0.2-1.0); BUN - BLOOD UREA NITROGEN 24 mg/dL (6-20); CALCIUM 9.3 mg/dL (8.5-10.3); CARBON DIOXIDE - CO2 30 mmol/L (21-32); CHLORIDE 103 mmol/L (101-111); CHOL/HDL RATIO 3.5 (<4.4); CHOLESTEROL 215 mg/dL; CREATININE 0.9 mg/dL (0.6-1.3); GFR - MDRD 61 (>89); GLUCOSE 98 mg/dL (74-104); HDL CHOLESTEROL 62 mg/dL; LDL CHOLESTEROL,CALCULATED 134 mg/dL; LDL/HDL RATIO 2.2 (<4.4); SODIUM 137 mmol/L (135-145); TOTAL PROTEIN 7.1 g/dL (6.4-8.9); TRIGLYCERIDES 96 mg/dL (48-352); VLDL CHOLESTEROL 19 mg/dL
[2023-05-10 09:39] LABS: THYROID STIMULATING HORMONE 6.61 uIU/mL (0.34-5.60)
== END 2023-05-10 09:00 | disposition home or self-care (01) ==
LOC: LAB 08:59
PROVIDERS: ATTEND Physician Assistant Medical
DX: E78.5 Hyperlipidemia, unspecified (principal); E06.3 Autoimmune thyroiditis; K21.9 Gastro-esophageal reflux disease without esophagitis
CPT/HCPCS: 36415; 80053; 80061; 83721; 84439; 84443; 85025

== ENCOUNTER 2023-05-14 08:55 | Outpatient (CLI) | payer MEDICARE, OTHER ==
--- NOTE | 2023-05-17 07:48 | Ultrasound Report ---
LIMITED ULTRASOUND OF LEFT BREAST: 05/14/2023 CLINICAL: Left Breast pain and palp areas. Comparison is made to exams dated: 10/06/2022 mammogram - [facility], 01/27/[address] MRI - [facility], 10/01/2021 mammogram, and 10/09/2020 ultrasound - [facility]. Color flow ultrasound of the left breast 2-5 o'clock region was performed. Martinez scale images of the real-time examination were reviewed. No sonographic abnormality is seen in the area of clinical concern at 4 o'clock and 5 o'clock, 5 cm f rom the nipple. IMPRESSION: NEGATIVE No sonographic abnormality in the areas of clinical concern. No mammographic or targeted sonographic evidence of malignancy. Recommend routine annual mammogram screening, which patient will be due for i n September 2023. Clinical follow-up is also recommended, and further management of palpable abnormalities or other foc al signs or symptoms should be based on the results of clinical evaluation. If palpable abnormality o r other concerning symptom persists or progresses, further clinical evaluation should be considered. Findings and recommendations were conveyed to the patient during today's evaluation. This exam was interpreted at Station ID: [id number]. Electronically Signed By: Reba Godoy M.D., PH.D eb/:05/14/2023 13:41:51 Ultrasound BI-RADS: 1 Negative BI-RADS CATEGORY: (1) - 1 Mammogram [id number] 1 year screening LATERALITY: (B)
--- NOTE | 2023-05-17 07:48 | Mammography Report ---
UNILATERAL LEFT DIGITAL DIAGNOSTIC MAMMOGRAM 3D/2D: 05/14/2023 CLINICAL: Palpable left breast lump. Intermittent pain in left breast. Comparison is made to exams dated: 10/06/2022 mammogram, 10/01/2021 mammogram, 10/09/2020 mammogram, 07/15 mammogram, 01/18/2019 mammogram, and 11/16/2017 mammogram - [facility]. There are scattered areas of fibroglandular density in the left breast (category b / 25%-50% glandula r tissue). Two BB markers were placed in the areas of clinical concern in the left breast, and no mammographic a bnormality is identified. No significant masses, calcifications, or other findings are seen in the breast. IMPRESSION: INCOMPLETE: NEEDS ADDITIONAL IMAGING EVALUATION No mammographic evidence of malignancy. Recommend further evaluation with targeted breast ultrasound, which will immediately follow this exam. Based on the Tyrer Cuzick model (a risk assessment model) the patients lifetime risk is 8.6% and her 10 year risk is 7.1%. According to the ACR, ACS, and NCCN guidelines, an annual breast MRI exam lux g with mammogram is recommended if the patients lifetime risk is 20% or greater. This exam was interpreted at Station ID: [id number]. NOTE: For mammograms, a report in lay terms will be sent to the patient. Approximately 15% of breast malignancies will not be visualized mammographically. In the management of a palpable breast mass, a negative mammogram must not discourage biopsy of a clinically suspicious lesion. Electronically Signed By: Reba Godoy M.D., PH.D eb/:05/14/2023 10:30:31 ACR BI-RADS Category 0: Incomplete 3340F PARENCHYMAL PATTERN: (A) - The breast(s) demonstrate(s) scattered fibroglandular densities. BI-RADS CATEGORY: (0) - 0 Ultrasound [id number] Immediate follow-up LATERALITY: (B)
== END 2023-05-14 08:56 | disposition home or self-care (01) ==
LOC: DI 08:55
PROVIDERS: ATTEND Nurse Practitioner Family
DX: N64.4 Mastodynia (principal); R92.322 Mammographic fibroglandular density, left breast

== ENCOUNTER 2023-08-24 16:25 | Outpatient (CLI) | payer MEDICARE ==
[2023-08-24 17:12] LABS: ALBUMIN 4.1 g/dL (3.2-5.5); CALCIUM 9.8 mg/dL (8.5-10.3); PHOSPHORUS 3.9 mg/dL (2.5-5.0)
[2023-08-24 17:20] LABS: THYROID STIMULATING HORMONE 3.15 uIU/mL (0.34-5.60)
== END 2023-08-24 16:26 | disposition home or self-care (01) ==
LOC: LAB 16:25
PROVIDERS: ATTEND Student in an Organized Health Care Education/Training Program
DX: E03.9 Hypothyroidism, unspecified (principal); E55.9 Vitamin D deficiency, unspecified
CPT/HCPCS: 36415; 80069; 82306; 83970; 84439; 84443

== ENCOUNTER 2023-10-13 20:33 | Emergency (ER) | payer MEDICARE ==
[2023-10-13 20:56] VITALS: BP 180/80
--- NOTE | 2023-10-13 20:56 | ED Physician Documentation ---
History of Present Illness - Stated complaint Stated Complaint: BILAT SHOULDER PX - Chief complaint Chief Complaint: General - Additonal information Additional information: 73-year-old female presents emergency department for upper neck pain and bilateral upper shoulder pain. Patient says that she lifted a heavy case of water at [employer] couple days ago and has been applying heat and taking 200 mg of ibuprofen to help with pain and discomfort and is not noticing any alleviation of symptoms. No fevers or chills no nausea or vomiting. 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 : Incontinence, Frequency HEENT: None Psych: None Musculoskeletal: None Derm: None - Past Surgical History Past Surgical History: Yes Ortho: Hip replacement, Other - Present Medications Home Medications: Ambulatory Orders Medication Instructions Recorded Confirmed Ascorbate Calcium [Vitamin C] 300 mg PO DAILY 12/07/12 02/05/21 Calcium Crb,Cit/D3/Min34/[place] 1 each PO DAILY 12/07/12 02/05/21 [Citracal + Bone Density Tablet] Ibuprofen [Motrin] 100 mg PO DAILY PRN 12/07/12 02/05/21 Cholecalciferol (Vitamin D3) 2,000 unit PO DAILY 11/16/17 02/05/21 [Vitamin D] Levothyroxine [Synthroid] 25 mcg PO QDAC 11/16/17 02/05/21 Ubidecarenone [Co Q-10] 300 mg PO DAILY 11/16/17 02/05/21 Vitamin B Complex 1 tab PO DAILY 10/25/20 02/05/21 Vitamin K2 100 mcg PO DAILY 10/25/20 02/05/21 predniSONE [Deltasone] 10 mg PO DAILY #30 tablet 02/05/21 Dicyclomine [Bentyl] 10 mg PO QID PRN #30 cap 04/25/22 Ondansetron Odt [Zofran] 4 mg TL Q6H PRN #10 tablet 04/25/22 Cyclobenzaprine [Flexeril] 10 mg PO TID PRN 6 Days #20 tablet 10/13/23 - Allergies Allergies/Adverse Reactions: Allergies Allergy/AdvReac Type Severity Reaction Status Date / Time Sulfa (Sulfonamide Allergy Rash Verified 10/13/23 20:38 Antibiotics) Egg Derived AdvReac Unknown Verified 10/13/23 20:38 lactose AdvReac Unknown Verified 10/13/23 20:38 - Social History Does the pt smoke?: No Smoking Status: Never smoker Does the pt drink ETOH?: No Does the pt have substance abuse?: No - Immunizations Immunizations are current?: Yes - POLST Patient has POLST: No PD ED PE NORMAL - Vitals Vital signs reviewed: Yes - General General: Alert and oriented X 3, No acute distress, Well developed/nourished - HEENT HEENT: Atraumatic, PERRL - Neck Neck: Supple, no meningeal sign, No bony TTP, No adenopathy - Cardiac Cardiac: RRR - Respiratory Respiratory: No respiratory distress - Abdomen Abdomen: Normal bowel sounds - Back Back: No CVA TTP - Derm Derm: Normal color, Warm and dry, No rash - Neuro Neuro: Alert and oriented X 3, 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 Most of her pain is to the paraspinal process where there is quite a bit of stiffness. She is able to move her neck without any difficulty and is just feeling quite stiff to the patient. No recent fevers or chills I did consider meningitis although this is very low on my differential as patient is overall quite well-appearing no recent international travel and no recent illnesses. Given that she has been underdosing herself with ibuprofen and not not taking any Tylenol and applying heat instead of ice I believe this is made her symptoms worse. We have given her a lidocaine patch in the emergency department a Toradol shot and muscle relaxer and patient reports significant improvement in symptoms. A short prescription of muscle relaxers was sent to her preferred pharmacy she is told to follow-up with primary care provider outpatient for physical therapy referral and ER return precautions given to patient all questions answered safe for discharge. Departure - Departure Disposition: 01 Home, Self Care Clinical Impression: Paraspinal muscle spasm, Cervical pain (neck) Instructions: ED Neck Pain No Trauma Prescriptions: Cyclobenzaprine [Flexeril] 10 mg PO TID PRN 6 Days #20 tablet PRN Reason: Spasms Comments: Thank you for trusting us with your care. We have given you Tylenol and Toradol here in the emergency department as well as a lidocaine patch to help with your neck pain. You can take 1000 mg of Tylenol every 8 hours for pain and discomfort and I would suggest taking 500 mg of Aleve every 12 hours for pain and discomfort. I have also prescribed a medication called a muscle relaxer, cyclobenzaprine you can take this up to 3 times a day as needed for muscle spasms and pain. Make sure that you are doing 20 minutes at a time of ice with 1 hour off to areas of pain and discomfort with some gentle stretching and range of motion exercises in between. If you start to develop any fevers or chills or any worsening symptoms despite the above regimen please come back to the emergency department. Forms: PCP List Discharge Date/Time: 10/13/23 21:33
[2023-10-13] MEDS: LIDOCAINE PATCH 5% TOP STA (21:21)
[2023-10-13] MEDS: BACLOFEN 10 MG TABLET PO STA (21:21)
[2023-10-13] MEDS: ACETAMINOPHEN 325 MG TABLET PO STA (21:21)
[2023-10-13] MEDS: KETOROLAC 30 MG/ML VIAL IM STA (21:22)
[2023-10-13 21:35] VITALS: O2SAT 6
== END 2023-10-13 21:33 | disposition home or self-care (01) ==
LOC: ED 20:33
DX: M62.838 Other muscle spasm (principal); X50.0XXA Overexertion from strenuous movement or load, initial encounter; Y92.512 Supermarket, store or market as the place of occurrence of the external cause; I10 Essential (primary) hypertension
CPT/HCPCS: 96372; 99283; A9270

== ENCOUNTER 2023-11-09 09:27 | Outpatient (CLI) | payer MEDICARE ==
--- NOTE | 2023-11-10 09:24 | Mammography Report ---
BILATERAL DIGITAL SCREENING MAMMOGRAM 3D/2D: 11/09/2023 CLINICAL: Routine screening. Family history of breast cancer. Comparison is made to exams dated: 05/14/2023 mammogram, 10/06/2022 mammogram, 10/01/2021 mammogram, 09/28 mammogram, 07/15/2020 mammogram, and 01/18/2019 mammogram - [facility]. There are scattered areas of fibroglandular density in both breasts (category b / 25%-50% glandular t issue). No significant masses, calcifications, or other findings are seen in either breast. There has been no significant interval change. IMPRESSION: NEGATIVE There is no mammographic evidence of malignancy. A 1 year screening mammogram is recommended. Based on the Tyrer Cuzick model (a risk assessment model) the patient's lifetime risk is 8.5% and her 10 year risk is 7.0%. According to the ACR, ACS, and NCCN guidelines, an annual breast MRI exam lux g with mammogram is recommended if the patient's lifetime risk is 20% or greater. This exam was interpreted at Station ID: [id number]. NOTE: For mammograms, a report in lay terms will be sent to the patient. Approximately 15% of breast malignancies will not be visualized mammographically. In the management of a palpable breast mass, a negative mammogram must not discourage biopsy of a clinically suspicious lesion. Electronically Signed By: Edmundo [email or web address]:11/09/2023 12:20:30 letter sent: No_Letter ACR BI-RADS Category 1: Negative 3341F PARENCHYMAL PATTERN: (A) - The breast(s) demonstrate(s) scattered fibroglandular densities. BI-RADS CATEGORY: (1) - 1 RECOMMENDATION: (ANNUAL) - Recommend routine annual screening mammography. [id number] 1 year screening LATERALITY: (B)
== END 2023-11-09 09:28 | disposition home or self-care (01) ==
LOC: DI 09:27
DX: Z12.31 Encounter for screening mammogram for malignant neoplasm of breast (principal); R92.323 Mammographic fibroglandular density, bilateral breasts; Z80.3 Family history of malignant neoplasm of breast

== ENCOUNTER 2024-02-24 09:17 | Outpatient (CLI) | payer MEDICARE ==
[2024-02-24 09:41] LABS: ALBUMIN 4.1 g/dL (3.2-5.5); CALCIUM 9.3 mg/dL (8.5-10.3); PHOSPHORUS 3.5 mg/dL (2.5-5.0)
== END 2024-02-24 09:18 | disposition home or self-care (01) ==
LOC: LAB 09:17
PROVIDERS: ATTEND Student in an Organized Health Care Education/Training Program
DX: E03.9 Hypothyroidism, unspecified (principal); E55.9 Vitamin D deficiency, unspecified
CPT/HCPCS: 36415; 80069